=== PATIENT | female | born 1945 | race Caucasian/White ===

== ENCOUNTER 2021-01-08 08:06 | Outpatient (REF) | payer MEDICARE, SELFPAY ==
[2021-01-08 08:28] LABS: MANUAL DIFF FLAG NO
[2021-01-08 08:35] LABS: Basophils Absolute Auto 0.1 X10*3/uL (0.0-0.2); Basophils Percent Auto 1.8 % (0-2); Eosinophils Absolute Auto 0.2 X10*3/uL (0.0-0.4); Eosinophils Percent Auto 3.8 % (0-4); Hematocrit 38.6 % (37-47); Hemoglobin 12.2 g/dl (12.0-16.0); Imm Gran Abs Auto 0.03 X10*3/uL (0.00-0.03); Imm Gran Pct Auto 0.6 % (0.0-0.4); Lymphocytes Absolute Auto 1.6 X10*3/uL (1.2-4.9); Lymphocytes Percent Auto 31.7 % (20-40); Mean Corpuscular HGB Conc 31.6 g/dl (31.0-35.0); Mean Corpuscular Hemoglobin 29.5 pg (27.0-33.0); Mean Corpuscular Volume 93.2 fL (80-98); Mean Platelet Volume 8.8 fL (9.4-12.3); Monocytes Absolute Auto 0.4 X10*3/uL (0.1-1.2); Monocytes Percent Auto 7.1 % (2-11); Neutrophils Absolute Auto 2.7 X10*3/uL (2.0-8.3); Platelet Count 341 X10*3/uL (160-400); Red Blood Count 4.14 X10*6/uL (4.20-5.50); Red Cell Distribution Width 13.3 % (11.0-16.0)
[2021-01-08 08:45] LABS: Estimated Average Glucose 123 mg/dL; Hemoglobin A1c % 5.9 %
[2021-01-08 09:13] LABS: Alanine Aminotransferase 16 U/L (0-31); Albumin Level 4.3 g/dL (3.5-5.0); Alkaline Phosphatase 101 U/L (39-117); Anion Gap 12 (12-20); Aspartate Amino Transferase 24 U/L (5-31); Bilirubin Total 0.3 mg/dL (0.0-1.0); Blood Urea Nitrogen 14 mg/dL (9-16); Calcium 8.9 mg/dL (8.4-10.2); Carbon Dioxide 22 mmol/L (22-29); Chloride 110 mmol/L (96-108); Cholesterol 176 mg/dL; Estimated Glomerular Filt Rate > 60; Glucose Random 116 mg/dL (60-115); HDL Cholesterol 50 mg/dL; LDL Cholesterol Calculated 106 mg/dl; Potassium 4.3 mmol/L (3.3-5.1); Sodium 140 mmol/L (135-145); Total Protein 6.9 g/dL (6.5-8.0); Triglycerides 103 mg/dL
[2021-01-08 09:23] LABS: Thyroid Stimulating Hormone 3.37 uIU/mL (0.32-4.0)
[2021-01-08 11:34] LABS: Vitamin B12 > 2000 pg/mL (200-900)
== END 2021-01-08 08:07 | disposition home or self-care (01) ==
LOC: HO.LAB 08:06
PROVIDERS: PCP Internal Medicine; Visit Provider Internal Medicine
DX: E78.00 Pure hypercholesterolemia, unspecified (principal); R73.02 Impaired glucose tolerance (oral)
CPT/HCPCS: 36415; 80053; 80061; 82306; 82607; 82746; 83036; 84443; 85025

== ENCOUNTER 2021-04-23 14:01 | Outpatient (REF) | payer MEDICARE, SELFPAY ==
--- NOTE | ~2021-04-23 | MM_ITS ---
EXAMINATION: MM SCREENING DIGITAL BREAST TOMOSYNTHESIS, LEFT CLINICAL INFORMATION: Screening. Asymptomatic. Remote right mastectomy, 1990. Due for yearly. COMPARISON: Mammography: 03/10/2020, 03/05/2019, 02/20/2018 TECHNIQUE: Digital breast tomosynthesis is performed in both the craniocaudal and mediolateral oblique views along with computer-aided detection (CAD). Synthesized 2D images are generated from the tomosynthesis. Additional left MLO view is provided. FINDINGS: The breasts are heterogeneously dense, which may obscure small masses (ACR BI-RADS breast composition Category c). Breast tissue composition borders on average fibroglandular. No developing density. There are no significant masses, abnormal calcifications, or other abnormalities. There is a dermal lesion again seen overlying the upper outer quadrant. MM/MM tomosynthesis screening LT IMPRESSION: No mammographic evidence of malignancy. ASSESSMENT: BI-RADS 2: Benign RECOMMENDATION: Routine annual mammography screening. This patient's information was entered into a reminder system with a target due date for their next mammogram.
== END 2021-04-23 14:02 | disposition home or self-care (01) ==
LOC: HO.MAMMO 14:01
PROVIDERS: PCP Internal Medicine; Visit Provider Internal Medicine
DX: Z12.31 Encounter for screening mammogram for malignant neoplasm of breast (principal)
CPT/HCPCS: 77063; 77067

== ENCOUNTER 2021-06-20 07:59 | Outpatient (REF) | payer MEDICARE, SELFPAY ==
[2021-06-20 09:04] LABS: Alanine Aminotransferase 16 U/L (0-31); Albumin Level 4.4 g/dL (3.5-5.0); Alkaline Phosphatase 84 U/L (39-117); Anion Gap 11 (12-20); Aspartate Amino Transferase 24 U/L (5-31); Bilirubin Total 0.8 mg/dL (0.0-1.0); Blood Urea Nitrogen 11 mg/dL (9-16); Calcium 9.8 mg/dL (8.4-10.2); Carbon Dioxide 25 mmol/L (22-29); Chloride 109 mmol/L (96-108); Cholesterol 185 mg/dL; Estimated Glomerular Filt Rate > 60; Glucose Fasting 122 mg/dL (60-99); HDL Cholesterol 46 mg/dL; LDL Cholesterol Calculated 103 mg/dl; Potassium 4.5 mmol/L (3.3-5.1); Sodium 140 mmol/L (135-145); Total Protein 7.2 g/dL (6.5-8.0); Triglycerides 183 mg/dL
== END 2021-06-20 08:00 | disposition home or self-care (01) ==
LOC: HO.LAB 07:59
PROVIDERS: Nurse Practitioner Acute Care; PCP Internal Medicine; Visit Provider Internal Medicine
DX: E78.00 Pure hypercholesterolemia, unspecified (principal)
CPT/HCPCS: 36415; 80053; 80061

== ENCOUNTER 2021-06-26 14:30 | Outpatient (REF) | payer MEDICARE, SELFPAY ==
--- NOTE | ~2021-06-26 | MM_ITS ---
EXAMINATION: BONE DENSITOMETRY CLINICAL INDICATION: Pure hypercholesterolemia, unspecified. COMPARISON: Previous BD dated 08/21/2017 and baseline BD dated 08/09/2008. TECHNIQUE: Using a [employer] DXA System (software version: 13.1) manufactured by [employer], dual-energy x-ray absorptiometry was performed of the lumbar spine and left hip. The images are of good technical quality. Summary results are attached. FINDINGS: AP SPINE L1-L4: Current: BMD 0.952 g/cm2, Z-score -0.3, T-score -1.9, osteopenia, 3.5% decrease from previous, 0.2% increase from baseline (<5% change is not significant). Prior: BMD 0.987 g/cm2. Baseline: BMD 0.950 g/cm2. LEFT FEMUR, NECK: Current: BMD 0.721 g/cm2, Z-score -0.5, T-score -2.3, osteopenia. Prior: BMD 0.735 g/cm2. Baseline: BMD 0.776 g/cm2. LEFT FEMUR, TOTAL: Current: BMD 0.779 g/cm2, Z-score -0.3, T-score -1.8, osteopenia, 3.8% decrease from previous, 2.5% decrease from baseline (<5% change is not significant). Prior: BMD 0.810 g/cm2. Baseline: BMD 0.799 g/cm2. IDENTIFIED RISK FACTORS: Early menopause, secondary osteoporosis, hysterectomy, bilateral oophorectomy. HISTORY OF FRACTURE: None listed. MEDICATIONS: None listed. MM/XR DEXA axial skeleton IMPRESSION: 1. DIAGNOSIS: Osteopenia based on the lowest T-score value of -2.3 in the femoral neck applying World Health Organization criteria. 2. 10-YEAR FRACTURE RISK PREDICTION, FRAX: Major osteoporotic fracture (clinical spine, forearm, hip or shoulder) 14.8%. Hip fracture 4.0%. 3. Treatment Recommendations: NOF guidelines recommend consideration for treatment in postmenopausal women and men age 50 and older presenting with the following: -A hip or vertebral (clinical or morphometric) fracture. -T-score less than or equal to -2.5 at the femoral neck or spine after appropriate evaluation to exclude secondary causes. -Low bone mass at the hip or spine and a 10-year fracture probability by FRAX of greater than or equal to 3% for hip fracture or greater than or equal to 20% for major osteoporotic fracture based on the [place] adapted WHO algorithm. 4. Other Recommendations: All treatment decisions require clinical judgment and consideration of individual patient factors, including patient preferences, comorbidities, previous drug use, risk factors not captured in the FRAX model (e.g. frailty, falls, vitamin D deficiency, increased bone turnover, interval significant decline in bone density) and possible under or overestimation of fracture risk by FRAX. Additional medical evaluation for secondary cause of low bone mineral density may be appropriate. FUTURE SCAN RECOMMENDATION: People with diagnosed cases of osteoporosis or at high risk for fracture should have regular bone mineral density tests. For patients eligible for Medicare, routine testing is allowed once every 2 years. The testing frequency can be increased to one year for patients who have rapidly progressing disease, those who are receiving or discontinuing medical therapy to restore bone mass, or have additional risk factors.
== END 2021-06-26 14:31 | disposition home or self-care (01) ==
LOC: HO.MAMMO 14:30
PROVIDERS: PCP Internal Medicine; Visit Provider Nurse Practitioner Acute Care
DX: Z13.820 Encounter for screening for osteoporosis (principal); E78.00 Pure hypercholesterolemia, unspecified; Z78.0 Asymptomatic menopausal state; Z90.710 Acquired absence of both cervix and uterus; Z90.722 Acquired absence of ovaries, bilateral
CPT/HCPCS: 77080

== ENCOUNTER → 2021-09-20 13:02 | Outpatient (BNVA) | payer MEDICARE, SELFPAY | PROVIDERS: PCP Internal Medicine; Visit Provider Dietitian, Registered | DX: R73.02 Impaired glucose tolerance (oral) (principal); Z71.3 Dietary counseling and surveillance | CPT/HCPCS: 97802 ==

== ENCOUNTER 2021-10-27 07:49 | Outpatient (REF) | payer MEDICARE, SELFPAY ==
[2021-10-27 09:34] LABS: Alanine Aminotransferase 16 U/L (0-31); Albumin Level 4.4 g/dL (3.5-5.0); Alkaline Phosphatase 74 U/L (39-117); Anion Gap 14 (12-20); Aspartate Amino Transferase 26 U/L (5-31); Bilirubin Total 0.5 mg/dL (0.0-1.0); Blood Urea Nitrogen 18 mg/dL (9-16); Calcium 9.9 mg/dL (8.4-10.2); Carbon Dioxide 24 mmol/L (22-29); Chloride 109 mmol/L (96-108); Estimated Glomerular Filt Rate 58; Glucose Random 107 mg/dL (60-115); Potassium 4.8 mmol/L (3.3-5.1); Sodium 142 mmol/L (135-145)
[2021-10-27 09:38] LABS: Estimated Average Glucose 120 mg/dL; Hemoglobin A1c % 5.8 %
== END 2021-10-27 07:50 | disposition home or self-care (01) ==
LOC: HO.LAB 07:49
PROVIDERS: PCP Internal Medicine; Visit Provider Internal Medicine
DX: R73.02 Impaired glucose tolerance (oral) (principal)
CPT/HCPCS: 36415; 80053; 83036

== ENCOUNTER → 2021-11-07 13:38 | Outpatient (BNVA) | payer MEDICARE, SELFPAY | PROVIDERS: PCP Internal Medicine; Visit Provider Dietitian, Registered | DX: R73.02 Impaired glucose tolerance (oral) (principal) | CPT/HCPCS: 97803 ==

== ENCOUNTER 2022-04-24 14:26 | Outpatient (REF) | payer MEDICARE, OTHER, SELFPAY ==
--- NOTE | ~2022-04-24 | MM_ITS ---
EXAMINATION: MM SCREENING DIGITAL BREAST TOMOSYNTHESIS, LEFT CLINICAL INFORMATION: Due for yearly. Remote right mastectomy, 1990. COMPARISON: Mammography: 04/23/2021, 03/10/2020, 03/05/2019, 02/20/2018, 02/18/2017 TECHNIQUE: Digital breast tomosynthesis is performed in both the craniocaudal and mediolateral oblique views along with computer-aided detection (CAD). Synthesized 2D images are generated from the tomosynthesis. FINDINGS: The breasts are heterogeneously dense, which may obscure small masses (ACR BI-RADS breast composition Category c). There are scattered shifting fibroglandular parenchymal densities related to variation in positioning. No developing density or architectural abnormality. Large dermal lesion again seen overlying the anterior upper outer breast. The axilla are unremarkable. No significant changes. MM/MM tomosynthesis screening LT IMPRESSION: No mammographic evidence of malignancy. ASSESSMENT: BI-RADS 2: Benign RECOMMENDATION: Routine annual mammography screening. This patient's information was entered into a reminder system with a target due date for their next mammogram.
== END 2022-04-24 14:27 | disposition home or self-care (01) ==
LOC: HO.MAMMO 14:26
PROVIDERS: PCP Internal Medicine; Visit Provider Internal Medicine
DX: Z12.31 Encounter for screening mammogram for malignant neoplasm of breast (principal)
CPT/HCPCS: 77063; 77067

== ENCOUNTER → 2022-05-08 13:43 | Outpatient (BNVA) | payer MEDICARE, OTHER, SELFPAY | PROVIDERS: PCP Internal Medicine; Visit Provider Dietitian, Registered | DX: R73.02 Impaired glucose tolerance (oral) (principal) | CPT/HCPCS: 97803 ==

== ENCOUNTER 2022-08-07 07:54 | Outpatient (REF) | payer MEDICARE, OTHER, SELFPAY ==
[2022-08-07 08:05] LABS: MANUAL DIFF FLAG NO
[2022-08-07 08:49] LABS: Basophils Absolute Auto 0.1 X10*3/uL (0.0-0.2); Basophils Percent Auto 1.6 % (0-2); Eosinophils Absolute Auto 0.2 X10*3/uL (0.0-0.4); Eosinophils Percent Auto 3.3 % (0-4); Hematocrit 38.8 % (37.0-47.0); Hemoglobin 12.5 g/dl (12.0-16.0); Imm Gran Abs Auto 0.03 X10*3/uL (0.00-0.03); Imm Gran Pct Auto 0.6 % (0.0-0.4); Lymphocytes Absolute Auto 1.8 X10*3/uL (1.2-4.9); Mean Corpuscular HGB Conc 32.2 g/dl (31.0-35.0); Mean Corpuscular Hemoglobin 29.6 pg (27.0-33.0); Mean Corpuscular Volume 91.7 fL (80.0-98.0); Mean Platelet Volume 8.7 fL (9.4-12.3); Monocytes Absolute Auto 0.5 X10*3/uL (0.1-1.2); Monocytes Percent Auto 10.1 % (2-11); Neutrophils Absolute Auto 2.6 x10*3/uL (2.0-8.3); Neutrophils Percent Auto 50.4 % (45-73); Platelet Count 368 X10*3/uL (160-400); Red Blood Count 4.23 X10*6/uL (4.20-5.50); Red Cell Distribution Width 14.6 % (11.0-16.0); White Blood Count 5.1 X10*3/uL (4.8-10.8)
[2022-08-07 09:19] LABS: Estimated Average Glucose 117 mg/dL; Hemoglobin A1c % 5.7 %
[2022-08-07 09:30] LABS: Alanine Aminotransferase 20 U/L (0-31); Albumin Level 4.6 g/dL (3.5-5.0); Alkaline Phosphatase 78 U/L (39-117); Anion Gap 14 (12-20); Aspartate Amino Transferase 25 U/L (5-31); Bilirubin Total 0.5 mg/dL (0.0-1.0); Blood Urea Nitrogen 14 mg/dL (9-16); Calcium 9.5 mg/dL (8.4-10.2); Carbon Dioxide 23 mmol/L (22-29); Chloride 111 mmol/L (96-108); Cholesterol 203 mg/dL; Estimated Glomerular Filt Rate > 60; Glucose Random 122 mg/dL (60-115); HDL Cholesterol 61 mg/dL; LDL Cholesterol Calculated 123 mg/dl; Potassium 4.4 mmol/L (3.3-5.1); Sodium 144 mmol/L (135-145); Total Protein 6.9 g/dL (6.5-8.0); Triglycerides 98 mg/dL
[2022-08-07 09:48] LABS: Folate 17.1 ng/mL (> or = 4.0); Free T4 (Free Thyroxine) 0.95 ng/dL (0.71-1.85); Thyroid Stimulating Hormone 3.11 uIU/mL (0.32-4.0); Vitamin B12 1195 pg/mL (200-900); Vitamin D 25-OH Total 39.2 ng/mL (>30)
== END 2022-08-07 07:55 | disposition home or self-care (01) ==
LOC: HO.LAB 07:54
PROVIDERS: PCP Internal Medicine; Visit Provider Internal Medicine
DX: E53.8 Deficiency of other specified B group vitamins (principal); R73.02 Impaired glucose tolerance (oral); E78.00 Pure hypercholesterolemia, unspecified
CPT/HCPCS: 36415; 80053; 80061; 82306; 82607; 82746; 83036; 84439; 84443; 85025

== ENCOUNTER → 2022-11-05 10:52 | Outpatient (BNVA) | payer MEDICARE, OTHER, SELFPAY | PROVIDERS: PCP Internal Medicine; Visit Provider Dietitian, Registered | DX: R73.02 Impaired glucose tolerance (oral) (principal) | CPT/HCPCS: 97803 ==

== ENCOUNTER 2023-01-27 12:48 | Outpatient (AMB) | payer MEDICARE, OTHER, SELFPAY ==
--- NOTE | 2023-01-27 13:01 | AM.OFFVISNUR ---
Intake Intake Visit Reasons: b-12 Allergies surgical tape Allergy (Mild, Uncoded 08/12/22 10:45) Rash Office Meds cyanocobalamin (vitamin B-12) Performing Provider: Martita Raya MD Administered by: Marybel Titus RN on 01/27/23 13:07 Dose Route Admin Location Lot Number Expiration Date NDC Charging Crane Operator 1,000 mcg IM left deltoid [id number] 10/21/23 95533-954-28 [employer] Coding Diagnoses Assessment & Plan Assessment & Plan Orders: Orders AMB Vitamin B12 Injection Patient Supplied Today E53.8 - Deficiency of other specified B group vitamins
== END 2023-01-27 13:09 | disposition home or self-care (01) ==
PROVIDERS: PCP Internal Medicine; Visit Provider Internal Medicine
DX: E53.8 Deficiency of other specified B group vitamins (principal)
CPT/HCPCS: 96372; J3420

== ENCOUNTER 2023-02-25 09:38 | Outpatient (AMB) | payer MEDICARE, OTHER, SELFPAY ==
--- NOTE | 2023-02-25 10:00 | AM.OFFVISNUR ---
Intake Intake Visit Reasons: B-12 Allergies surgical tape Allergy (Mild, Uncoded 08/12/22 10:45) Rash Office Meds cyanocobalamin (vitamin B-12) Performing Provider: Martita Raya MD Administered by: Marybel Titus RN on 02/25/23 10:06 Dose Route Admin Location Lot Number Expiration Date NDC Station Repairer 1,000 mcg IM left deltoid [id number] 10/21/23 42589-280-00 [employer] (P) Coding Diagnoses Assessment & Plan Assessment & Plan Orders: Orders AMB Vitamin B12 Injection Patient Supplied Today E53.8 - Deficiency of other specified B group vitamins Medications: Refilled cyanocobalamin (vitamin B-12) 1,000 mcg IM Q4W 12 kits 3RF 90 days E53.8 - Deficiency of other specified B group vitamins
== END 2023-02-25 10:07 | disposition home or self-care (01) ==
PROVIDERS: PCP Internal Medicine; Visit Provider Internal Medicine
DX: E53.8 Deficiency of other specified B group vitamins (principal)
CPT/HCPCS: 96372; J3420

== ENCOUNTER 2023-03-25 14:04 | Outpatient (AMB) | payer MEDICARE, OTHER, SELFPAY ==
--- NOTE | 2023-03-25 14:09 | MHC.PC.OV ---
Vital Signs 03/25/23 14:13 Height 5 ft 6 in Weight 149 lb 2 oz BMI 24.1 BP 122/82 Blood Pressure Location Lt brachial Position Sitting Pulse 95 Pulse Source Pulse Oximeter Pulse Oximetry (%) 96 Oxygen Delivery Method Room Air Intake Visit Reasons: swv / b-12 shot Intake Note: Patient is here to follow up on B12 deficiency, Impaired glucose tolerance and Hypercholesterolemia. Beater Room Helper Required: No Job Service Specialist: Not Required per policy Accompanied by: Self / Same As Patient Allergies surgical tape Allergy (Mild, Uncoded 03/25/23 14:26) Rash Medication List - Last Reconciled 03/25/23 by MARC Campuzano cyanocobalamin (vitamin B-12) 1,000 mcg IM Q4W 90 days cyclobenzaprine 5 mg PO TID 90 days simvastatin 40 mg PO DAILY sumatriptan succinate 25 mg PO .QD PRN 90 days Tobacco use date assessed: 03/25/23 Fall risk assessment: No Falls in past year Last assessed Fall Risk: 03/25/23 Dental Screening Dental Screen Date: 03/25/23 Did you have a dental visit in the last 12 months?: Yes Did you have a dental problem in the last 6 months where you did not have access to dental care?: No Was dental information given to patient?: Patient has dentist HPI HPI Comments History of Present Illness Details 77-year-old female past medical history significant for breast cancer, impaired glucose tolerance, hypercholesteremia, osteopenia, migraines and vitamin B12 deficiency. Patient last seen in July patient presents today for follow-up visit and for vitamin B12 injection and flu shot given in office today. Patient denies any acute concerns. Patient recommended to get fasting blood work completed prior to annual wellness visit scheduled in May. [facility] Medical History (Updated 04/22/22 @ 16:40 by Martita Raya MD) Duodenal ulcer Hypercholesterolemia Stress incontinence Impaired glucose tolerance Migraine History of breast cancer Pernicious anemia B12 deficiency Surgical History History of dental surgery History of orthopedic surgery History of knee replacement procedure of left knee S/P left knee arthroscopy History of appendectomy History of tonsillectomy History of total abdominal hysterectomy and bilateral salpingo-oophorectomy H/O right mastectomy Family History Father Prostate cancer Lung cancer Mother CVD (cardiovascular disease) Renal artery aneurysm Social History Housing: House Alcohol intake: current Alcohol intake frequency: a few times a month Patient Tobacco Use Status: Never used Tobacco e-Cigarette/Vaping Use: Never Used Second Hand Smoke Exposure: No service: No Current occupational status: retired Cognitive needs: No Hearing needs: No Vision needs: Yes Questionnaire Thrive Questionnaire Date Thrive assessed: 08/12/22 CLIFF-7 AMB Questionnaire CLIFF-7 Date CLIFF - 7 assessed: 08/12/22 Source: Developed by Drs. Ronal Wheeler, Slime Oswald, Gustavo Horner and colleagues, with an educational ernesto from [employer]. Review of Systems Const Denies chills, Denies fatigue, Denies fever(s) and Denies poor appetite Eyes Denies no additional complaints ENT Reports Normal hearing present Card Denies chest pain, Denies syncope, Denies rapid heart rate and Denies dyspnea Resp Denies cough and Denies dyspnea GI Denies change in stool character, Denies constipation, Denies diarrhea, Denies nausea and Denies vomiting Denies urinary frequency, Denies dysuria and Denies urinary urgency Neuro Reports Normal hearing present, Denies confusion and Denies syncope Psych Denies confusion Endo Denies fatigue Physical exam (Primary Care) Vital Signs: Last Vital Signs Pulse 95 03/25/23 14:13 BP 122/82 03/25/23 14:13 Pulse Ox 96 03/25/23 14:13 Oxygen Delivery Method Room Air 03/25/23 14:13 BMI result Body Mass Index 24.1 Tobacco/Smoking Status: Tobacco use Status Tobacco use date assessed 03/25/23 03/25/23 14:22 Patient Tobacco Use Status Never used Tobacco 03/25/23 14:10 e-Cigarette/Vaping Use Never Used 03/25/23 14:10 Thrive Assessment: Date of Thrive Assessment Date Thrive assessed 08/12/22 03/25/23 14:10 Const General: No confusion Orientation/consciousness: No confusion HENMT Head: Yes normocephalic and Yes atraumatic Eyes Conjunctivae: conjunctivae normal Chest Chest palpation & inspection: normal inspection of the chest Resp Effort & Inspection: normal respiratory effort Auscultation: clear to auscultation bilaterally, no crackles, no rhonchi and no wheezes Cardio Rate: regular rate Rhythm: regular rhythm Heart sounds: S1 normal heart sound present and S2 normal heart sound present GI Inspection: Yes normal to inspection Neuro General: No confusion Cranial nerves: Yes Normal hearing present Extrem General: No edema Office Procedures Flu Questionnaire Does the patient have a severe egg allergy?: No Does the patient have severe life threatening allergies?: No Does the patient have a fever or illness today?: No Has the patient ever had Guillain-[place] Syndrome?: No Has the patient ever had any past reaction to a flu shot?: No Office Meds cyanocobalamin (vitamin B-12) 1,000 mcg/mL injection solution Performing Provider: MARC Campuzano Performing Location[place] [facility] Administered by: Marybel Titus RN on 03/25/23 14:32 Dose Route Admin Location Dispensed Lot Number Expiration Date [facility] [employer] Research [employer] 1,000 mcg IM LEFT DELTOID 1 mL [id number] 10/20/24 31179-282-03 [employer] Results AMB Hemoglobin A1c AMB Hemoglobin A1c 5.8 % Last Edit by MIRIAM Diaz on 03/25/23 14:27 Immunizations flu vacc [id number] 6mos up(PF) 60 mcg(15 mcgx4)/0.5 mL IM syringe Performing Provider: MACR Campuzano Performing [facility] Administered by: Marybel Titus RN on 03/25/23 14:31 Dose Route Admin Location Dispensed Lot Number Expiration Date [facility] [employer] Research [employer] 0.5 mL IM Left Deltoid 0.5 mL [id number] 12/21/23 91659-762-99 [employer] VIS Given Date VIS Provided VIS Publication Date 03/25/23 Single Vaccine 21 Eligibility Eligibility Date Funding Source Not [facility] Eligible 03/25/23 Private Results Reviewed Results Reviewed: Laboratory Last Values Hgb A1c (Clinic) 5.8 % (4.0-6.0) 03/25/23 14:12 Assessment and Plan Assessment & Plan (1) Impaired glucose tolerance: Code(s): R73.02 - Impaired glucose tolerance (oral) Plan: Hemoglobin A1c:5.8% Patient educated to decrease the amount of carbohydrate intake such as pasta, bread, rice and potatoes are all sugar in addition to the sweet stuff. Remember that fruits are good but they also have sugar. (2) Hypercholesterolemia: Code(s): E78.00 - Pure hypercholesterolemia, unspecified Plan: Continue on simvastatin 40 mg daily. Avoid fried foods, chicken skin, eggs, butter,margarine, pastries and?? red meat. (3) B12 deficiency: Code(s): E53.8 - Deficiency of other specified B group vitamins Plan: Vitamin B12 given office today. Follow-up in 1 month for repeat injection. (4) Migraine: Code(s): G43.909 - Migraine, unspecified, not intractable, without status migrainosus Plan: Continue on sumatriptan as needed for migraine headache. Plan Keep schedule annual wellness visit in May for follow-up sooner if needed. Orders: Orders Influenza [id number] Immunization Today Z23 - Encounter for immunization AMB Vitamin B12 Injection Patient Supplied Today D51.9 - Vitamin B12 deficiency anemia, unspecified Comprehensive [place]. Panel Fast Today R73.02 - Impaired glucose tolerance (oral) Lipid Panel Today E78.00 - Pure hypercholesterolemia, unspecified Vitamin B12 Today E53.8 - Deficiency of other specified B group vitamins Vitamin D 25-OH Total Today Z13.21 - Encounter for screening for nutritional disorder AMB Hemoglobin A1c Today R73.02 - Impaired glucose tolerance (oral) Complete Blood Count Auto Diff Today Z13.0 - Encounter for screening for diseases of the blood and blood-forming organs and certain disorders involving the immune mechanism TSH reflex Free T4 Today Z13.29 - Encounter for screening for other suspected endocrine disorder Coding Level of Care Code Est Pt Level 4 (61495) Diagnoses Impaired glucose tolerance R73.02 Hypercholesterolemia E78.00 B12 deficiency E53.8 Migraine G43.909
[2023-03-25 14:13] VITALS: BP 122/82; PULSE 95; O2SAT 96; BMI 24.1
== END 2023-03-25 14:38 | disposition home or self-care (01) ==
PROVIDERS: PCP Internal Medicine; Visit Provider Nurse Practitioner Family
DX: R73.02 Impaired glucose tolerance (oral) (principal); E78.00 Pure hypercholesterolemia, unspecified; E53.8 Deficiency of other specified B group vitamins; G43.909 Migraine, unspecified, not intractable, without status migrainosus; Z23 Encounter for immunization; D51.9 Vitamin B12 deficiency anemia, unspecified
CPT/HCPCS: 83036; 90471; 90686; 96372; 99214; J3420

== ENCOUNTER 2023-04-05 07:58 | Outpatient (REF) | payer MEDICARE, OTHER, SELFPAY ==
[2023-04-05 09:01] LABS: Basophils Absolute Auto 0.1 X10*3/uL (0.0-0.2); Basophils Percent Auto 1.7 % (0-2); Eosinophils Absolute Auto 0.1 X10*3/uL (0.0-0.4); Eosinophils Percent Auto 3.1 % (0-4); Hematocrit 38.4 % (37.0-47.0); Hemoglobin 12.2 g/dl (12.0-16.0); Imm Gran Abs Auto 0.02 X10*3/uL (0.00-0.03); Imm Gran Pct Auto 0.5 % (0.0-0.4); Lymphocytes Absolute Auto 1.1 X10*3/uL (1.2-4.9); Lymphocytes Percent Auto 26.5 % (20-40); MANUAL DIFF FLAG NO; Mean Corpuscular HGB Conc 31.8 g/dl (31.0-35.0); Mean Corpuscular Volume 94.3 fL (80.0-98.0); Monocytes Absolute Auto 0.4 X10*3/uL (0.1-1.2); Monocytes Percent Auto 9.6 % (2-11); Neutrophils Absolute Auto 2.4 x10*3/uL (2.0-8.3); Neutrophils Percent Auto 58.6 % (45-73); Platelet Count 344 X10*3/uL (160-400); Red Blood Count 4.07 X10*6/uL (4.20-5.50); Red Cell Distribution Width 13.2 % (11.0-16.0); White Blood Count 4.2 X10*3/uL (4.8-10.8)
[2023-04-05 09:54] LABS: Alanine Aminotransferase 16 U/L (0-31); Albumin Level 4.6 g/dL (3.5-5.0); Alkaline Phosphatase 69 U/L (39-117); Anion Gap 15 (12-20); Aspartate Amino Transferase 31 U/L (5-31); Bilirubin Total 0.6 mg/dL (0.0-1.0); Blood Urea Nitrogen 11 mg/dL (9-16); Calcium 9.9 mg/dL (8.4-10.2); Carbon Dioxide 23 mmol/L (22-29); Chloride 110 mmol/L (96-108); Cholesterol 184 mg/dL (<200); Estimated Glomerular Filt Rate > 60; Glucose Fasting 114 mg/dL (60-99); HDL Cholesterol 67 mg/dL (>40); LDL Cholesterol Calculated 85 mg/dL (<100); Potassium 4.5 mmol/L (3.3-5.1); Sodium 143 mmol/L (135-145); Total Protein 7.4 g/dL (6.5-8.0); Triglycerides 160 mg/dL (<150)
[2023-04-05 10:08] LABS: TSH reflex Free T4 2.77 uIU/mL (0.32-4.0); Vitamin D 25-OH Total 47.7 ng/mL (>30)
[2023-04-05 10:13] LABS: Vitamin B12 854 pg/mL (200-900)
== END 2023-04-05 07:59 | disposition home or self-care (01) ==
LOC: HO.LAB 07:58
PROVIDERS: PCP Internal Medicine; Visit Provider Nurse Practitioner Family
DX: Z13.21 Encounter for screening for nutritional disorder (principal); Z13.0 Encounter for screening for diseases of the blood and blood-forming organs and certain disorders involving the immune mechanism; Z13.29 Encounter for screening for other suspected endocrine disorder; R73.02 Impaired glucose tolerance (oral); E78.00 Pure hypercholesterolemia, unspecified; E53.8 Deficiency of other specified B group vitamins; M85.80 Other specified disorders of bone density and structure, unspecified site
CPT/HCPCS: 36415; 80053; 80061; 82306; 82607; 84443; 85025

== ENCOUNTER 2023-04-25 09:16 | Outpatient (AMB) | payer MEDICARE, OTHER, SELFPAY ==
--- NOTE | 2023-04-25 09:29 | AM.OFFVISNUR ---
Intake Intake Visit Reasons: b-12 Allergies surgical tape Allergy (Mild, Uncoded 03/25/23 14:26) Rash Office Meds cyanocobalamin (vitamin B-12) 1,000 mcg/mL injection solution Performing Provider: Martita Raya MD [facility] Administered by: Marybel Titus RN on 04/25/23 09:29 Dose Route Admin Location Dispensed Lot Number Expiration Date NDC Manager Billing 1,000 mcg IM left deltoid 1 mL [id number] 10/20/24 07565-479-13 [facility] Coding Assessment & Plan Assessment & Plan Orders: Orders AMB Vitamin B12 Injection Patient Supplied Today D51.9 - Vitamin B12 deficiency anemia, unspecified
== END 2023-04-25 09:31 | disposition home or self-care (01) ==
PROVIDERS: PCP Internal Medicine; Visit Provider Internal Medicine
DX: D51.9 Vitamin B12 deficiency anemia, unspecified (principal)
CPT/HCPCS: 96372; J3420

== ENCOUNTER 2023-05-06 10:36 | Outpatient (AMB) | payer MEDICARE, OTHER, SELFPAY ==
[2023-05-06 11:11] VITALS: BMI 24.6
--- NOTE | 2023-05-06 11:11 | A.OFFVIS_ITS ---
Intake VS Expanded 05/06/23 11:11 Height 5 ft 6 in Weight 152 lb 8.958 oz BMI 24.6 Intake Visit Reasons: PRE DM Allergies surgical tape Allergy (Mild, Uncoded 03/25/23 14:26) Rash HPI Nutrition Presentation Details Pt presents for MNT f/u for Pre,DM Pt reports doing well, keeping physically active, likes to bake Reports having milk : 2-3 c/day fish: once a week nuts/daily , peanut butter fruits: 2/d vegetables 3 x/wk Pt reports keeping track of steps : range [id number] Water: 24 -36 oz /day Most Recent Diabetes Results: Cholesterol 184 mg/dL (<200) 04/05/23 HDL Cholesterol 67 mg/dL (>40) 04/05/23 Triglycerides 160 mg/dL (<150) H 04/05/23 Creatinine 0.81 mg/dL (0.5-1.4) 04/05/23 Blood Urea Nitrogen 11 mg/dL (9-16) 04/05/23 Sodium 143 mmol/L (135-145) 04/05/23 Potassium 4.5 mmol/L (3.3-5.1) 04/05/23 Chloride 110 mmol/L (96-108) H 04/05/23 Carbon Dioxide 23 mmol/L (22-29) 04/05/23 Calcium 9.9 mg/dL (8.4-10.2) 04/05/23 AST 31 U/L (5-31) 04/05/23 ALT 16 U/L (0-31) 04/05/23 Total Protein 7.4 g/dL (6.5-8.0) 04/05/23 Albumin 4.6 g/dL (3.5-5.0) 04/05/23 [facility] Medical History (Updated 04/22/22 @ 16:40 by Martita Raya MD) Duodenal ulcer Hypercholesterolemia Stress incontinence Impaired glucose tolerance Migraine History of breast cancer Pernicious anemia B12 deficiency Surgical History History of dental surgery History of orthopedic surgery History of knee replacement procedure of left knee S/P left knee arthroscopy History of appendectomy History of tonsillectomy History of total abdominal hysterectomy and bilateral salpingo-oophorectomy H/O right mastectomy Family History Father Prostate cancer Lung cancer Mother CVD (cardiovascular disease) Renal artery aneurysm Social History Housing: House Alcohol intake: current Alcohol intake frequency: a few times a month Patient Tobacco Use Status: Never used Tobacco e-Cigarette/Vaping Use: Never Used Second Hand Smoke Exposure: No service: No Current occupational status: retired Cognitive needs: No Hearing needs: No Vision needs: Yes Assessment & Plan Assessment & Plan (1) Impaired glucose tolerance: Code(s): R73.02 - Impaired glucose tolerance (oral) Plan Educate Pt on [id number] nilson meal plan ? Pt's set goal (Date: 09/20/21 ): reduce carbohydrate as a snack to less than 15 and meal to 45 g at follow up (Date: 11/07/21 ): met 50% , 50% 04/2023 Used wt : 70 kg Est kcal as per MSJ: 1700 (40% carb, 30% fat/prot) Est fluid needs: 1750l/d (30 ml/kg bw) Rec fiber: increase to 8-10 g per day and gradually increase to 25 g/d as tolerated Rec Na: < 2000 mg /d Educate patient on: (R= Reviewed, V = verbalizes understanding N/R= Needs review N/A= not applicable) * Food sources of carbohydrates and serving adequate serving sizes : R V * Difference between complex carbohydrates and simple carbohydrates, role of fiber: R V * Differences between fats (MUFA/PUFA/saturated fats, trans fats) and food sources of various fats: R V * Food sources of sodium and salt and healthy modifications for heart health and kidney health: R V * Vitamins and minerals: V * How to interpret food labels: R V * Healthy Plate method concept: R V * Physical activity: benefits and precaution: R V Patient Instructions: Keep hydrated , choose low sodium broth, water, tea, milk Include 1-2 serving of iron rich foods in your diet (spinach, beef, lentil/beans) Continue working on reducing sugars (pastries/candies) Keep physically active as able Coding Level of Care Code Nutr Indiv Subseq (88621) Diagnoses Impaired glucose tolerance R73.02 Time Spent (min) 20
== END 2023-05-06 11:35 | disposition home or self-care (01) ==
PROVIDERS: PCP Internal Medicine; Visit Provider Dietitian, Registered
DX: R73.02 Impaired glucose tolerance (oral) (principal)

== ENCOUNTER → 2023-05-06 10:36 | Outpatient (BNVA) | payer MEDICARE, OTHER, SELFPAY | PROVIDERS: Visit Provider Dietitian, Registered | DX: R73.02 Impaired glucose tolerance (oral) (principal) | CPT/HCPCS: 97803 ==

== ENCOUNTER 2023-05-12 08:29 | Outpatient (REF) | payer MEDICARE, OTHER, SELFPAY ==
--- NOTE | ~2023-05-12 | MM_ITS ---
EXAMINATION: MM SCREENING DIGITAL BREAST TOMOSYNTHESIS, LEFT CLINICAL INFORMATION: Screening. Asymptomatic. The patient is status post right mastectomy. COMPARISON: Mammography: This study is compared with prior exams dating back to 2017. TECHNIQUE: Digital breast tomosynthesis is performed in both the craniocaudal and mediolateral oblique views along with computer-aided detection (CAD). Synthesized 2D images are generated from the tomosynthesis. FINDINGS: There are scattered areas of fibroglandular density (ACR BI-RADS breast composition Category b). There are no significant masses, abnormal calcifications, or other abnormalities. MM/MM tomosynthesis screening LT IMPRESSION: No mammographic evidence of malignancy. ASSESSMENT: BI-RADS BI-RADS 1 - Negative RECOMMENDATION: Routine annual mammography screening. 1 year F/U This examination should not preclude the clinical evaluation of a suspicious palpable abnormality. This patient's information was entered into a reminder system with a target due date for their next mammogram.
== END 2023-05-12 08:30 | disposition home or self-care (01) ==
LOC: HO.MAMMO 08:29
PROVIDERS: PCP Internal Medicine; Visit Provider Internal Medicine
DX: Z12.31 Encounter for screening mammogram for malignant neoplasm of breast (principal)
CPT/HCPCS: 77063; 77067

== ENCOUNTER → 2023-05-12 08:45 | Outpatient (BNV) | payer MEDICARE, OTHER, SELFPAY | PROVIDERS: PCP Internal Medicine; Visit Provider Radiology Diagnostic Radiology | DX: Z12.31 Encounter for screening mammogram for malignant neoplasm of breast (principal) | CPT/HCPCS: 77063; 77067 ==

== ENCOUNTER 2023-05-23 09:16 | Outpatient (AMB) | payer MEDICARE, OTHER, SELFPAY ==
--- NOTE | 2023-05-23 09:21 | AM.OFFVISNUR ---
Intake Intake Visit Reasons: B12 Shot Allergies surgical tape Allergy (Mild, Uncoded 03/25/23 14:26) Rash Office Meds cyanocobalamin (vitamin B-12) 1,000 mcg/mL injection solution Performing Provider: Martita Raya MD [facility] Administered by: Marybel Titus RN on 05/23/23 09:28 Dose Route Admin Location Dispensed Lot Number Expiration Date NDC Balance Wheel Hand Filer 1,000 mcg IM left deltoid 1 mL [id number] 10/20/24 48817-954-93 [facility] Coding Assessment & Plan Assessment & Plan Orders: Orders AMB Vitamin B12 Injection Patient Supplied Today D51.9 - Vitamin B12 deficiency anemia, unspecified
== END 2023-05-23 09:28 | disposition home or self-care (01) ==
PROVIDERS: PCP Internal Medicine; Visit Provider Internal Medicine
DX: D51.9 Vitamin B12 deficiency anemia, unspecified (principal)
CPT/HCPCS: 96372; J3420

== ENCOUNTER 2023-06-03 13:25 | Outpatient (AMB) | payer MEDICARE, OTHER, SELFPAY ==
--- NOTE | 2023-06-03 13:31 | A.OFFVIS_ITS ---
Intake Vital Signs 06/03/23 13:34 Height 5 ft 6 in Weight 147 lb 6 oz BMI 23.8 BP 140/80 H Blood Pressure Location Lt brachial Position Sitting Pulse 102 H Pulse Source Pulse Oximeter Pulse Oximetry (%) 96 Oxygen Delivery Method Room Air Intake Visit Reasons: JESUS [id number] Intake Note: Patient is here for an Annual Wellness Visit. 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 Mammograms up-to-date, bone density up-to-date and colonoscopy due [facility] Medical History (Updated 06/03/23 @ 18:53 by Martita Raya MD) Duodenal ulcer Hypercholesterolemia Stress incontinence Impaired glucose tolerance Migraine History of breast cancer Pernicious anemia B12 deficiency Surgical History History of dental surgery History of orthopedic surgery History of knee replacement procedure of left knee S/P left knee arthroscopy History of appendectomy History of tonsillectomy History of total abdominal hysterectomy and bilateral salpingo-oophorectomy H/O right mastectomy Family History Father Prostate cancer Lung cancer Mother CVD (cardiovascular disease) Renal artery aneurysm Social History (Updated 06/03/23 @ 14:25 by Martita Raya MD) Housing: House Alcohol intake: current Alcohol intake frequency: a few times a month Comment: holiday 1 beer Patient Tobacco Use Status: Never used Tobacco e-Cigarette/Vaping Use: Never Used Second Hand Smoke Exposure: No service: No Current occupational status: retired Cognitive needs: No Hearing needs: No Vision needs: Yes Questionnaire Medicare Wellness Checkup [age] What gender do you identify with?: female During the past 4 weeks, how much have you been bothered by emotional problems such as feeling anxious, depressed, irritable, sad or downhearted, and blue?: not at all During the past 4 weeks, has your physical & emotional health limited your social activities with family, friends, neighbors, or groups?: slightly During the past 4 weeks, how much bodily pain have you generally had?: mild pain During the past 4 weeks, was someone available to help you if you needed & wanted help?: yes, some During the past 4 weeks, what was the hardest physical activity you could do for at least 2 minutes?: heavy Can you get to places out of walking distance without help? (For eg., can you travel alone on buses, taxis or drive your car?): Yes Can you go shopping for groceries or clothes without someone's help?: Yes Can you prepare your own meals?: Yes Can you do your housework without help?: Yes Because of any health problems, do you need the help of another person with your personal care needs such as eating, bathing, dressing or getting around the house?: No Can you handle your own money without help?: Yes During the past 4 weeks, how would you rate your health in general?: good During the past 4 weeks how have things been going for you?: pretty well Are you having difficulties driving your car?: no Do you always fasten your seat belt when you are in a car?: yes, usually During past 4 weeks, have you been bothered by the following: never: Falling or dizzy when standing up, Trouble eating well?, Teeth or denture problems?, Problems using the telephone? and Tiredness or fatigue? Have you fallen 2 or more times in the past year?: No Are you afraid of falling?: No Are you a smoker?: no During the past 4 weeks, how many drinks of wine, beer, or other alcoholic beverages did you have?: 1 drink or less per week Do you exercise for about 20 minutes 3 or more times a week?: yes, all the time Have you been given information to help with the following?: no: Hazards in your house that might hurt you? and no: Keeping track of your medications? How often do you have trouble taking medicines the way you have been told to take them?: I always take medicine as prescribed How confident are you that you can control & manage most of your health problems?: very confident What is your race?: White PHQ-9 Over the last 2 weeks, how often have you been bothered by any of the following problems? 1. Little interest or pleasure in doing things: not at all 2. Feeling down, depressed, or hopeless: not at all 3. Trouble falling or staying asleep, or sleeping too much: not at all 4. Feeling tired or having little energy: not at all 5. Poor appetite or overeating: not at all 6. Feeling bad about yourself - or that you are a failure or have let yourself or your family down: not at all 7. Trouble concentrating on things, such as reading the newspaper or watching television: not at all 8. Moving or speaking so slowly that other people could have noticed. Or the opposite - being so fidgety or restless that you have been moving around a lot more than usual: not at all 9. Thoughts that you would be better off or of hurting yourself in some way: not at all Total score: 0 Depression Screening Interpretation: Negative Depression Screening Done: Yes Source: Developed by Drs. Ronal Wheeler, Slime Oswald, Gustavo Horner and colleagues, with an educational ernesto from [employer]. Thrive Questionnaire Date Thrive assessed: 08/12/22 CLIFF-7 AMB Questionnaire CLIFF-7 Date CLIFF - 7 assessed: 08/12/22 Source: Developed by Slime Coppola Kurt Kroenke and colleagues, with an educational ernesto from [employer]. Review of Systems Const Denies poor appetite and Denies weakness Eyes Denies no additional complaints ENT Reports Normal hearing present, Denies dizziness, Denies nasal congestion, Denies tinnitus and Denies sore throat Card Denies chest pain, Denies syncope, Denies rapid heart rate and Denies dyspnea Resp Denies cough and Denies dyspnea GI Denies change in stool character, Reports constipation, Denies diarrhea, Denies nausea and Denies vomiting Denies urinary frequency, Denies difficulty voiding and Denies dysuria Neuro Reports Normal hearing present, Denies confusion, Denies dizziness, Denies syncope and Denies weakness Psych Denies confusion Physical Exam Vital Signs: Last Vital Signs Pulse 102 H 06/03/23 13:34 BP 140/80 H 06/03/23 13:34 Pulse Ox 96 06/03/23 13:34 Oxygen Delivery Method Room Air 06/03/23 13:34 BMI result Body Mass Index 23.8 Const General: No confusion Orientation/consciousness: No confusion HEENT Head: Yes normocephalic Ears: external ears normal and TM's normal bilaterally Face and sinus: Yes normal facial exam Mouth: moist mucous membranes Throat: Yes tonsils normal Eyes Conjunctivae: conjunctivae normal Pupils: Equal, round and reactive pupils present and Pupil accommodation reflex normal Direct Ophthalmoscopy: normal light reflex Neck Neck: No lymphadenopathy Thyroid: Thyroid normal Chest Chest palpation & inspection: normal inspection of the chest Resp Effort & Inspection: normal respiratory effort and no audible wheezes Auscultation: clear to auscultation bilaterally, no crackles, no wheezes and lung sounds not diminished Cardio Rate: regular rate Rhythm: regular rhythm Peripheral pulses: radial pulses present and dorsalis pedis present GI Palpation (GI): no masses Auscultation: normal bowel sounds and normoactive bowel sounds Rectal Exam - Female: deferred Skin General skin exam: no rashes or lesions noted Rashes: no rashes Neuro General: No confusion Cranial nerves: Yes Equal, round and reactive pupils present and Yes Normal hearing present Cognition (Neuro): normal cognition Gait exam (Neuro): Normal gait present Motor exam (neuro): 5/5 motor strength present throughout Deep tendon reflexes (DTR's): Right brachioradialis reflex intensity grade: 2+, Left brachioradialis reflex intensity grade: 2+, Right patellar reflex intensity grade: 2+ and Left patellar reflex intensity grade: 2+ Extrem General: No edema Assessment & Plan Assessment & Plan (1) Medicare annual wellness visit, subsequent: Code(s): Z00.00 - Encounter for general adult medical examination without abnormal findings Plan: Continue present medications (2) Impaired glucose tolerance: Code(s): R73.02 - Impaired glucose tolerance (oral) Plan: Decrease the amount of carbohydrate intake, pasta, bread, rice and potatoes are all sugar and that is aside from all the sweet stuff, remember that fruits are good but they are Sweet also. (3) History of breast cancer: Comment: Right 1990 Dr. Reardon right radical mastectomy no chemo no radiation tamoxifen 5 years Code(s): Z85.3 - Personal history of malignant neoplasm of breast Plan: Mammograms up-to-date (4) Hypercholesterolemia: Code(s): E78.00 - Pure hypercholesterolemia, unspecified Plan: Avoid fried foods, chicken skin, eggs, butter margarine, pastries and meat. Be it pork or beef they have a lot of cholesterol LDL goal of less than 130 and triglyceride of less than 150 patient on simvastatin 40 mg once a day (5) Osteopenia: Comment: 06/2021 Code(s): M85.80 - Other specified disorders of bone density and structure, unspecified site Qualifiers: Osteopenia location: unspecified Qualified Code(s): M85.80 - Other specified disorders of bone density and structure, unspecified site Plan: Bone density is up-to-date (6) Colon cancer screening: Code(s): Z12.11 - Encounter for screening for malignant neoplasm of colon Plan: Discussed about colon cancer screening (7) Ulnar neuropathy at elbow of right upper extremity: Code(s): G56.21 - Lesion of ulnar nerve, right upper limb Plan: Will continue to follow-up for now, declined any workup Orders: Referrals Gastroenterology Referral Z12.11 - Encounter for screening for malignant neoplasm of colon Quality Reporting (2019) Depression/Bipolar (159/160/161/177) PHQ-9: Total score: 0 Coding Level of Care Code Medicare Subsequent (G0439) Diagnoses Medicare annual wellness visit, subsequent Z00.00 Impaired glucose tolerance R73.02 History of breast cancer Z85.3 Hypercholesterolemia E78.00 Osteopenia, unspecified location M85.80 Osteopenia location: unspecified Colon cancer screening Z12.11 Ulnar neuropathy at elbow of right upper extremity G56.21
[2023-06-03 13:34] VITALS: BP 140/80; PULSE 102; O2SAT 96; BMI 23.8
== END 2023-06-03 15:03 | disposition home or self-care (01) ==
PROVIDERS: PCP Internal Medicine; Visit Provider Internal Medicine
DX: Z00.00 Encounter for general adult medical examination without abnormal findings (principal); R73.02 Impaired glucose tolerance (oral); Z85.3 Personal history of malignant neoplasm of breast; E78.00 Pure hypercholesterolemia, unspecified; M85.80 Other specified disorders of bone density and structure, unspecified site; Z12.11 Encounter for screening for malignant neoplasm of colon; G56.21 Lesion of ulnar nerve, right upper limb
CPT/HCPCS: G0439

== ENCOUNTER 2023-06-24 08:10 | Outpatient (AMB) | payer MEDICARE, OTHER, SELFPAY ==
--- NOTE | 2023-06-24 08:29 | AM.OFFVISNUR ---
Intake Intake Visit Reasons: b-12 Allergies surgical tape Allergy (Mild, Uncoded 06/03/23 13:34) Rash Office Meds cyanocobalamin (vitamin B-12) 1,000 mcg/mL injection solution Performing Provider: Martita Raya MD [facility] Administered by: Rebeca Dodge RN on 06/24/23 08:29 Dose Route Admin Location Dispensed Lot Number Expiration Date ND Signals Analyst 1,000 mcg IM 1 mL [id number] 10/20/24 57421-186-05 [facility] Coding Assessment & Plan Assessment & Plan Orders: Orders AMB Vitamin B12 Injection Patient Supplied Today E53.8 - Deficiency of other specified B group vitamins
== END 2023-06-24 08:32 | disposition home or self-care (01) ==
PROVIDERS: PCP Internal Medicine; Visit Provider Internal Medicine
DX: E53.8 Deficiency of other specified B group vitamins (principal)
CPT/HCPCS: 96372; J3420

== ENCOUNTER 2023-07-25 08:16 | Outpatient (AMB) | payer MEDICARE, OTHER, SELFPAY ==
--- NOTE | 2023-07-25 08:36 | AM.OFFVISNUR ---
Intake Intake Visit Reasons: B12 Shot Allergies surgical tape Allergy (Mild, Uncoded 06/03/23 13:34) Rash Office Meds cyanocobalamin (vitamin B-12) 1,000 mcg/mL injection solution Performing Provider: Martita Raya MD [facility] Administered by: Rebeca Dodge RN on 07/25/23 08:36 Dose Route Admin Location Dispensed Lot Number Expiration Date NDC Music Coordinator 1,000 mcg IM left deltoid 1 mL [id number] 08/20/24 31792-166-35 [employer] Coding Assessment & Plan Assessment & Plan Orders: Orders AMB Vitamin B12 Injection Patient Supplied Today E53.8 - Deficiency of other specified B group vitamins
== END 2023-07-25 08:50 | disposition home or self-care (01) ==
PROVIDERS: PCP Internal Medicine; Visit Provider Internal Medicine
DX: E53.8 Deficiency of other specified B group vitamins (principal)
CPT/HCPCS: 96372; J3420

== ENCOUNTER 2023-08-22 08:12 | Outpatient (AMB) | payer MEDICARE, OTHER, SELFPAY ==
--- NOTE | 2023-08-22 08:23 | AM.OFFVISNUR ---
Intake Intake Visit Reasons: B12 Shot Allergies surgical tape Allergy (Mild, Uncoded 06/03/23 13:34) Rash Office Meds cyanocobalamin (vitamin B-12) 1,000 mcg/mL injection solution Performing Provider: Martita Raya MD [facility] Administered by: Rebeca Dodge RN on 08/22/23 08:23 Dose Route Admin Location Dispensed Lot Number Expiration Date NDC Envelope Sealer 1,000 mcg IM left deltoid 1 mL [id number] 08/20/24 88850-857-99 [employer] Coding Assessment & Plan Assessment & Plan Orders: Orders AMB Vitamin B12 Injection Patient Supplied Today E53.8 - Deficiency of other specified B group vitamins
== END 2023-08-22 08:25 | disposition home or self-care (01) ==
PROVIDERS: PCP Internal Medicine; Visit Provider Internal Medicine
DX: E53.8 Deficiency of other specified B group vitamins (principal)
CPT/HCPCS: 96372; J3420

== ENCOUNTER 2023-09-22 08:04 | Outpatient (AMB) | payer MEDICARE, OTHER, SELFPAY ==
--- NOTE | 2023-09-22 08:06 | AM.OFFVISNUR ---
Intake Intake Visit Reasons: B12 Shot Allergies surgical tape Allergy (Mild, Uncoded 06/03/23 13:34) Rash Office Meds cyanocobalamin (vitamin B-12) 1,000 mcg/mL injection solution Performing Provider: Martita Raya MD [facility] Administered by: Rebeca Dodge RN on 09/22/23 08:06 Dose Route Admin Location Dispensed Lot Number Expiration Date NDC Glass Breaker 1,000 mcg IM Left deltoid 1 mL [id number] 08/20/24 54514-887-91 [employer] Coding Assessment & Plan Assessment & Plan Orders: Orders AMB Vitamin B12 Injection Patient Supplied Today E53.8 - Deficiency of other specified B group vitamins
== END 2023-09-22 08:17 | disposition home or self-care (01) ==
PROVIDERS: PCP Internal Medicine; Visit Provider Internal Medicine
DX: E53.8 Deficiency of other specified B group vitamins (principal)
CPT/HCPCS: 96372; J3420

== ENCOUNTER 2023-10-07 09:26 | Outpatient (AMB) | payer MEDICARE, OTHER, SELFPAY ==
[2023-10-07 09:28] VITALS: BP 132/70; PULSE 83; O2SAT 98; BMI 24.9
--- NOTE | 2023-10-07 09:28 | MHC.PC.OV ---
Vital Signs 10/07/23 09:28 Height 5 ft 6 in Weight 154 lb BMI 24.9 BP 132/70 Blood Pressure Location Lt brachial Position Sitting Pulse 83 Pulse Source Pulse Oximeter Pulse Oximetry (%) 98 Oxygen Delivery Method Room Air Intake Visit Reasons: B12 def, IGT, Hypercholestermia Allergies surgical tape Allergy (Mild, Uncoded 10/07/23 09:28) Rash Tobacco use date assessed: 10/07/23 Fall risk assessment: No Falls in past year Last assessed Fall Risk: 10/07/23 Dental Screening Dental Screen Date: 10/07/23 Did you have a dental visit in the last 12 months?: Yes Did you have a dental problem in the last 6 months where you did not have access to dental care?: No Was dental information given to patient?: Patient has dentist HPI B12 def, IGT, Hypercholestermia HPI Details 78-year-old female with impaired glucose tolerance history of breast cancer hypercholesterolemia osteopenia coming in for follow-up. Last seen in May for annual well visit. Mammogram is up-to-date bone density is due colonoscopy has been requested. scheduled to see 10/15/2023 [facility] Medical History (Updated 10/07/23 @ 10:03 by Martita Raya MD) Duodenal ulcer Hypercholesterolemia Stress incontinence Impaired glucose tolerance Migraine History of breast cancer Pernicious anemia B12 deficiency Surgical History History of dental surgery History of orthopedic surgery History of knee replacement procedure of left knee S/P left knee arthroscopy History of appendectomy History of tonsillectomy History of total abdominal hysterectomy and bilateral salpingo-oophorectomy H/O right mastectomy Family History Father Prostate cancer Lung cancer Mother CVD (cardiovascular disease) Renal artery aneurysm Social History (Updated 06/03/23 @ 14:25 by Martita Raya MD) Housing: House Alcohol intake: current Alcohol intake frequency: a few times a month Comment: holiday 1 beer Patient Tobacco Use Status: Never used Tobacco e-Cigarette/Vaping Use: Never Used Second Hand Smoke Exposure: No service: No Current occupational status: retired Cognitive needs: No Hearing needs: No Vision needs: Yes Questionnaire PHQ-9 Over the last 2 weeks, how often have you been bothered by any of the following problems? 1. Little interest or pleasure in doing things: not at all 2. Feeling down, depressed, or hopeless: not at all 3. Trouble falling or staying asleep, or sleeping too much: not at all 4. Feeling tired or having little energy: not at all 5. Poor appetite or overeating: not at all 6. Feeling bad about yourself - or that you are a failure or have let yourself or your family down: not at all 7. Trouble concentrating on things, such as reading the newspaper or watching television: not at all 8. Moving or speaking so slowly that other people could have noticed. Or the opposite - being so fidgety or restless that you have been moving around a lot more than usual: not at all 9. Thoughts that you would be better off or of hurting yourself in some way: not at all Total score: 0 Depression Screening Interpretation: Negative Depression Screening Done: Yes Source: Developed by Drs. Ronal Wheeler, Slime Oswald, Gustavo Horner and colleagues, with an educational ernesto from [employer]. Thrive Questionnaire Date Thrive assessed: 10/07/23 I am a: Patient What is your living situation today?: I have a steady place to live Within the past 12 months, did the food you bought not last and you didn't have the money to get more?: Never true Within the past 12 months, did you worry whether your food would run out before you got money to buy more?: Never true Do you have trouble paying for medicines?: No Do you have trouble getting transportation to medical appointments?: No Do you have trouble paying your heating and electricity bill?: No Do you have trouble taking care of your child, family member or friend?: No Do you have trouble with day-to-day activities such as bathing, preparing meals, shopping, managing finances, etc.?: No Are you currently unemployed and looking for a job?: No Are you interested in more education?: No Currently or been in a relationship where the following occur: no concerns reported THRIVE Score: 0 AUDIT C Alcohol Use Questionnaire (AUDIT-C) 1. How often do you have a drink containing alcohol?: Monthly or less (holidays ) 2. How many drinks containing alcohol do you have on a typical day when you are drinking?: 1 or 2 3. How often do you have six or more drinks on one occasion?: Never Total Score: 1 CLIFF-7 AMB Questionnaire CLIFF-7 Date CLIFF - 7 assessed: 10/07/23 Feeling nervous, anxious, or on edge: 0 = Not at all Not being able to stop or control worryin = Not at all Worrying too much about different things: 0 = Not at all Trouble relaxin = Not at all Being so restless that it is hard to sit still: 0 = Not at all Becoming easily annoyed or irritable: 0 = Not at all Feeling afraid as if something awful might happen: 0 = Not at all Total CLIFF-7 score (0-4 normal; 5-9 mild; 10-14 moderate; 15-21 severe): 0 Source: Developed by Drs. Ronal Wheeler, Slime Oswald, Gustavo Horner and colleagues, with an educational ernesto from [employer]. Physical exam (Primary Care) Vital Signs: Last Vital Signs Pulse 83 10/07/23 09:28 BP 132/70 10/07/23 09:28 Pulse Ox 98 10/07/23 09:28 Oxygen Delivery Method Room Air 10/07/23 09:28 BMI result Body Mass Index 24.9 Tobacco/Smoking Status: Tobacco use Status Tobacco use date assessed 10/07/23 10/07/23 09:35 Patient Tobacco Use Status Never used Tobacco 10/07/23 09:35 e-Cigarette/Vaping Use Never Used 10/07/23 09:35 PHQ-9: PHQ-9 Score PHQ-9: Total score 0 10/07/23 09:35 Depression Screening Interpretation: Negative Thrive Assessment: Date of Thrive Assessment Date Thrive assessed 10/07/23 10/07/23 09:35 Currently or been in a relationship where the following occur: no concerns reported Const General: alert; No acute distress Eyes Conjunctivae: conjunctivae normal Resp Auscultation: clear to auscultation bilaterally Cardio Rate: regular rate Rhythm: regular rhythm GI Inspection: Yes normal to inspection Extrem General: Yes normal to inspection and No edema Assessment and Plan Assessment & Plan (1) History of breast cancer: Comment: Right 1990 Dr. Reardon right radical mastectomy no chemo no radiation tamoxifen 5 years Code(s): Z85.3 - Personal history of malignant neoplasm of breast Plan: Patient is up-to-date with mammogram (2) Impaired glucose tolerance: Code(s): R73.02 - Impaired glucose tolerance (oral) Plan: Decrease the amount of carbohydrate intake, pasta, bread, rice and potatoes are all sugar and that is aside from all the sweet stuff, remember that fruits are good but they are Sweet also. (3) Hypercholesterolemia: Code(s): E78.00 - Pure hypercholesterolemia, unspecified Plan: Avoid fried foods, chicken skin, eggs, butter margarine, pastries and meat. Be it pork or beef they have a lot of cholesterol presently on simvastatin 40 mg once a day March 2023 last blood work (4) Colon cancer screening: Code(s): Z12.11 - Encounter for screening for malignant neoplasm of colon Plan: Patient is reminded about colonoscopy (5) Bilateral hand numbness: Code(s): R20.0 - Anesthesia of skin Orders: Orders NE electromyogram (EMG) Today R20.0 - Anesthesia of skin NE nerve conduction velocity Today R20.0 - Anesthesia of skin Vitamin B12 and Folate Today R20.0 - Anesthesia of skin Lipid Panel Today E78.00 - Pure hypercholesterolemia, unspecified Complete Blood Count Auto Diff Today E78.00 - Pure hypercholesterolemia, unspecified Comprehensive Met. Panel Today E78.00 - Pure hypercholesterolemia, unspecified Free T4 (Free Thyroxine) Today E78.00 - Pure hypercholesterolemia, unspecified Thyroid Stimulating Hormone Today E78.00 - Pure hypercholesterolemia, unspecified Hemoglobin A1c Today R73.02 - Impaired glucose tolerance (oral) XR DEXA axial skeleton Today M81.0 - Age-related osteoporosis without current pathological fracture, M85.80 - Other specified disorders of bone density and structure, unspecified site Coding Level of Care Code Est Pt Level 4 (92839) Diagnoses History of breast cancer Z85.3 Impaired glucose tolerance R73.02 Hypercholesterolemia E78.00 Colon cancer screening Z12.11 Bilateral hand numbness R20.0
== END 2023-10-07 10:56 | disposition home or self-care (01) ==
PROVIDERS: PCP Internal Medicine; Visit Provider Internal Medicine
DX: Z85.3 Personal history of malignant neoplasm of breast (principal); R73.02 Impaired glucose tolerance (oral); E78.00 Pure hypercholesterolemia, unspecified; Z12.11 Encounter for screening for malignant neoplasm of colon; R20.0 Anesthesia of skin
CPT/HCPCS: 99214

== ENCOUNTER 2023-10-21 08:24 | Outpatient (REF) | payer MEDICARE, OTHER, SELFPAY ==
--- NOTE | ~2023-10-21 | MM_ITS ---
EXAMINATION: BONE DENSITOMETRY CLINICAL INDICATION: Age-related osteoporosis without current pathological fracture. COMPARISON: Previous BD dated 06/26/2021 and baseline BD dated 08/09/2008. TECHNIQUE: Using a Stereotaxis DXA System (software version: 13.1) manufactured by [employer], dual-energy x-ray absorptiometry was performed of the lumbar spine and left hip. The images are of good technical quality. Summary results are attached. FINDINGS: LEFT FEMUR, NECK: Current: BMD 0.710 g/cm2, Z-score -0.4, T-score -2.4, osteopenia. Prior: BMD 0.721 g/cm2. Baseline: BMD 0.776 g/cm2. LEFT FEMUR, TOTAL: Current: BMD 0.753 g/cm2, Z-score -0.3, T-score -2.0, osteopenia, 3.3% decrease from previous, 5.8% decrease from baseline (<5% change is not significant). Prior: BMD 0.779 g/cm2. Baseline: BMD 0.799 g/cm2. AP SPINE L1-L4: Current: BMD 0.934 g/cm2, Z-score -0.3, T-score -2.1, osteopenia, 1.9% decrease from previous, 1.7% decrease from baseline (<5% change is not significant). Prior: BMD 0.952 g/cm2. Baseline: BMD 0.950 g/cm2. IDENTIFIED RISK FACTORS: Early menopause, secondary osteoporosis, hysterectomy. HISTORY OF FRACTURE: None listed. MEDICATIONS: ERT/SERMS. MM/XR DEXA axial skeleton IMPRESSION: 1. DIAGNOSIS: Osteopenia based on the lowest T-score value of -2.4 in the femoral neck applying World Health Organization criteria. 2. 10-YEAR FRACTURE RISK PREDICTION, FRAX: Not performed in this patient on estrogen or bone building treatments. 3. Treatment Recommendations: NOF guidelines recommend consideration for treatment in postmenopausal women and men age 50 and older presenting with the following: -A hip or vertebral (clinical or morphometric) fracture. -T-score less than or equal to -2.5 at the femoral neck or spine after appropriate evaluation to exclude secondary causes. -Low bone mass at the hip or spine and a 10-year fracture probability by FRAX of greater than or equal to 3% for hip fracture or greater than or equal to 20% for major osteoporotic fracture based on the [place] adapted WHO algorithm. 4. Other Recommendations: All treatment decisions require clinical judgment and consideration of individual patient factors, including patient preferences, comorbidities, previous drug use, risk factors not captured in the FRAX model (e.g. frailty, falls, vitamin D deficiency, increased bone turnover, interval significant decline in bone density) and possible under or overestimation of fracture risk by FRAX. Additional medical evaluation for secondary cause of low bone mineral density may be appropriate. FUTURE SCAN RECOMMENDATION: People with diagnosed cases of osteoporosis or at high risk for fracture should have regular bone mineral density tests. For patients eligible for Medicare, routine testing is allowed once every 2 years. The testing frequency can be increased to one year for patients who have rapidly progressing disease, those who are receiving or discontinuing medical therapy to restore bone mass, or have additional risk factors.
--- NOTE | 2023-10-21 08:27 | EMG_ITS ---
Bilateral median and ulnar motor and sensory studies were performed. Bilateral radial sensory studies were performed and paraspinal muscles were tested with a needle. IMPRESSION: Moderately severe bilateral median neuropathy across carpal tunnel. MD YURIDIA Vera/TIFFANIE / [id number]
== END 2023-10-21 08:25 | disposition home or self-care (01) ==
LOC: HO.NEURO 08:24
PROVIDERS: PCP Internal Medicine; Visit Provider Internal Medicine
DX: R20.0 Anesthesia of skin (principal); M81.0 Age-related osteoporosis without current pathological fracture; M85.80 Other specified disorders of bone density and structure, unspecified site
CPT/HCPCS: 77080; 95886; 95911

== ENCOUNTER 2023-11-04 08:13 | Outpatient (AMB) | payer MEDICARE, OTHER, SELFPAY ==
[2023-11-04 08:28] VITALS: BMI 25.1
--- NOTE | 2023-11-04 08:28 | A.OFFVIS_ITS ---
VS Expanded 11/04/23 08:28 Height 5 ft 6 in Weight 155 lb 10.342 oz BMI 25.1 Intake Visit Reasons: Pre-DM/ CONFIRMED Allergies surgical tape Allergy (Mild, Uncoded 10/07/23 09:28) Rash Nutrition Presentation Details: Pt presents for MNT follow up for Pre DM Pt reports appetite is good ,m akes own meals and keeps physically active reports choosing fish once/m, poultry more frequently fruit : 0-1/d pastries and similar: 1/d dairy: 2+/d vegetables: including starchy reports not adding salt to the foods physical activity: 6000 steps or more daily BS Monitoring Most Recent Diabetes Results: No Data to Display [facility] Medical History (Updated 10/31/23 @ 17:43 by Martita Raya MD) Bilateral hand numbness Duodenal ulcer Hypercholesterolemia Stress incontinence Impaired glucose tolerance Migraine History of breast cancer Pernicious anemia B12 deficiency Surgical History History of dental surgery History of orthopedic surgery History of knee replacement procedure of left knee S/P left knee arthroscopy History of appendectomy History of tonsillectomy History of total abdominal hysterectomy and bilateral salpingo-oophorectomy H/O right mastectomy Family History Father Prostate cancer Lung cancer Mother CVD (cardiovascular disease) Renal artery aneurysm Social History (Updated 06/03/23 @ 14:25 by Martita Raya MD) Housing: House Alcohol intake: current Alcohol intake frequency: a few times a month Comment: holiday 1 beer Patient Tobacco Use Status: Never used Tobacco e-Cigarette/Vaping Use: Never Used Second Hand Smoke Exposure: No service: No Current occupational status: retired Cognitive needs: No Hearing needs: No Vision needs: Yes Assessment & Plan Assessment & Plan (1) Impaired glucose tolerance: Code(s): R73.02 - Impaired glucose tolerance (oral) Category: Medical Plan Educate Pt on [id number] nilson meal plan ? Review healthy plate, symptoms of high blood sugar Used wt : 70 kg Est kcal as per MSJ: 1700 (40% carb, 30% fat/prot) Est fluid needs: 1750l/d (30 ml/kg bw) Rec fiber: increase to 8-10 g per day and gradually increase to 25 g/d as tolerated Rec Na: < 2000 mg /d Educate patient on: (R= Reviewed, V = verbalizes understanding N/R= Needs review N/A= not applicable) * Food sources of carbohydrates and serving adequate serving sizes : R V * Difference between complex carbohydrates and simple carbohydrates, role of fiber: R V * Differences between fats (MUFA/PUFA/saturated fats, trans fats) and food sources of various fats: R V * Food sources of sodium and salt and healthy modifications for heart health and kidney health: R V * Vitamins and minerals: V * How to interpret food labels: R V * Healthy Plate method concept: R V * Physical activity: benefits and precaution: R V Patient Instructions: Be mindful of foods high in sugar and salt (pastries/cookies/puddings) , aim at choosing 2 fruits a day instead Include at least 2 servings of calcium in your diet (1% milk, yogurt, kale, spinach, beans, sardines with bones keep physically active as able and keep hydrated Coding Level of Care Code Nutr Indiv Subseq (81369) Diagnoses Impaired glucose tolerance R73.02 Time Spent (min) 30
== END 2023-11-04 08:59 | disposition home or self-care (01) ==
PROVIDERS: PCP Internal Medicine; Visit Provider Dietitian, Registered
DX: R73.02 Impaired glucose tolerance (oral) (principal)

== ENCOUNTER → 2023-11-04 08:13 | Outpatient (BNVA) | payer MEDICARE, OTHER, SELFPAY | PROVIDERS: PCP Internal Medicine; Visit Provider Dietitian, Registered | DX: R73.02 Impaired glucose tolerance (oral) (principal); Z71.3 Dietary counseling and surveillance | CPT/HCPCS: 97803 ==

== ENCOUNTER 2023-12-10 07:53 | Outpatient (AMB) | payer MEDICARE, OTHER, SELFPAY ==
--- NOTE | 2023-12-10 08:03 | MHC.OFFVIS ---
Vital Signs 12/10/23 08:09 Height 5 ft 6 in Weight 155 lb BMI 25.0 Handedness Right Intake Visit Reasons: [employer]- bilateral hand pain and numbness Intake Note: Alida 78 year old right hand dominant female presents today for a new patient visit for her tingling and numbness on bilateral hands. 30 years ago she states she had carpal tunnel release done left, [place] Nilton Car[place] [facility] [place] Patient reports sharp pain and numbness and tingling that starts at the tip of her fingers and radiates into her wrist. States her left is worse than her right hand. She states her left hand has consistent numbness and tingling through out the day. Right hand causes her to wake up at night and shake off the numbness and tingling. States symptoms have been on going for many years but worsening started about 6 months ago. She expresses pain with gripping, grasping and taking care of her home. She has tried ice and Tylenol in the past with no relief. She has a hx of multiple knee surgeries causing her to have a hx of extensive use of crutches and canes which she believes might apart of the reason her CTS has worsened over the years. EMG done and would like to discuss surgical intervention. Allergies surgical tape Allergy (Mild, Uncoded 12/10/23 08:22) Rash HPI HPI [employer]- bilateral hand pain and numbness: Details: Alida is a 78 year old right hand dominant woman who presents for a NCS review of her bilateral hand numbness. She complains of numbness in the median nerve distribution bilaterally, L>R. Symptoms intermittent, but daily, worse at night. She says her symptoms are more constant in her left hand throughout the day, but her right hand causes her to wake up at night. She believes she had a left carpal tunnel release done in ~1993, but is unsure. She has a hx of multiple knee surgeries, which required her to use crutches for several years. She feels this may have worsened her carpal tunnel symptoms. She would like to discuss surgery. 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 [facility] Medical History Bilateral hand numbness Duodenal ulcer Hypercholesterolemia Stress incontinence Impaired glucose tolerance Migraine History of breast cancer Pernicious anemia B12 deficiency Surgical History History of dental surgery History of orthopedic surgery History of knee replacement procedure of left knee S/P left knee arthroscopy History of appendectomy History of tonsillectomy History of total abdominal hysterectomy and bilateral salpingo-oophorectomy H/O right mastectomy Family History Father Prostate cancer Lung cancer Mother CVD (cardiovascular disease) Renal artery aneurysm Social History Housing: House Alcohol intake: current Alcohol intake frequency: a few times a month Comment: holiday 1 beer Patient Tobacco Use Status: Never used Tobacco e-Cigarette/Vaping Use: Never Used Second Hand Smoke Exposure: No service: No Current occupational status: retired Cognitive needs: No Hearing needs: No Vision needs: Yes Review of Systems Const All systems reviewed & are unremarkable except as noted in HPI and below Physical Exam Vital Signs: BMI result Body Mass Index 25.0 Const General: cooperative, healthy appearing and no acute distress Orientation/consciousness: patient oriented x3 HEENT Head: Yes normocephalic and Yes atraumatic Eyes EOM: EOMs intact bilaterally Resp Effort & Inspection: normal respiratory effort and able to speak in complete sentences Cardio Jugular venous distension: no JVD Skin General skin exam: turgor normal Rashes: no rashes Neuro General: patient oriented x3 Extrem Other: Evaluation of Bilateral Upper Extremity: The patient is alert, oriented, and in no acute distress Neuro: Median, Ulnar, Radial nerves motor and sensory intact and sensation is normal to the tips of all digits today in clinic No thenar or intrinsic wasting Good APB muscle belly firing and good finger cross Vascular: Cap refill brisk ROM: She can make a fist and extend all her digits No locking or catching Skin: No lacerations or abrasions. General: No Ecchymosis. No Erythema or evidence of infection. ~1cm long scar over volar radial aspect distal forearm, more consistent with likely ganglion excision than a carpal tunnel release Nerve Conduction Study: IMPRESSION: Moderately severe bilateral median neuropathy across carpal tunnel. Filiberto Sellers MD 10/21/2023 Psych Appearance: grossly normal Affect: normal affect Attitude: cooperative Assessment & Plan Assessment & Plan (1) Carpal tunnel syndrome on both sides: Comment: September 2023Moderately severe bilateral median neuropathy across carpal tunnel. Code(s): G56.03 - Carpal tunnel syndrome, bilateral upper limbs Category: Medical Plan Assessment & Plan: 1. Left carpal tunnel syndrome, moderate-severe Symptoms intermittent, but daily, worse at night 2. Right carpal tunnel syndrome, moderate-severe Symptoms intermittent, but daily, worse at night I educated her about this condition I discussed operative and non-operative treatment options The patient would like to proceed with surgery, beginning with the left side The risks and benefits of operative treatment were discussed with the patient and the patient wishes to proceed with surgery. These risks include, but are not limited to risk of damage to blood vessels, nerves, tendons, infection, recurrence, incomplete relief of preoperative symptoms, persistent pain, possible need for further surgery and the risks associated with regional blocks and anesthesia. The plan is to take the patient to the operating room sometime in the next few weeks for the following procedures: 1. Left carpal tunnel release, under local All of the preoperative paperwork including the consent was reviewed today. All the patient's questions were answered. The patient understands that they will be contacted by our plastic surgery coordinator soon to schedule this procedure. She is retired and would like to be put on the cancellation list for a sooner DOS. She denies Diabetes, blood thinners, asthma, heart, lung, kidney issues Scribed for Siri Chowdary MD by Mj Hess, hospital medical assistant, on 12/10/23 at 8:30 AM, EST. Coding Level of Care Code New Pt Level 4 (26294) Diagnoses Carpal tunnel syndrome on both sides G56.03
[2023-12-10 08:09] VITALS: BMI 25.0
== END 2023-12-10 08:41 | disposition home or self-care (01) ==
PROVIDERS: PCP Internal Medicine; Visit Provider Orthopaedic Surgery
DX: G56.03 Carpal tunnel syndrome, bilateral upper limbs (principal)
CPT/HCPCS: 99204

== ENCOUNTER → 2023-12-10 07:53 | Outpatient (BNVA) | payer MEDICARE, OTHER, SELFPAY | PROVIDERS: PCP Internal Medicine; Visit Provider Orthopaedic Surgery | DX: G56.03 Carpal tunnel syndrome, bilateral upper limbs (principal) | CPT/HCPCS: 99202 ==

== ENCOUNTER 2024-02-09 08:38 | Day surgery (SDC) | payer MEDICARE, OTHER, SELFPAY ==
[2024-02-09 09:11] VITALS: BP 184/79; PULSE 95; RESP 16; TEMP 36.6; O2SAT 94; BMI 22.9
--- NOTE | 2024-02-09 09:58 | MHC.SHP ---
Pre-Procedural Eval Section A - 24 Hr Update-Section A only Date of Service: 02/09/24 The patient is an INPATIENT: No Changes since office visit: No Cold of Flu in the past 2 weeks, No New Medical Problems, No Changes in Medication and No Patient answered all questions The patient has been examined within 24 hours of the surgical procedure. The History & Physical has been completed within 30 days and I have reviewed it.: Yes Section B - Complete if H&P > 30 days Chief Complaint: Carpal tunnel syndrome, left upper limb Allergies: Allergies Allergy/AdvReac Type Severity Reaction Status Date / Time surgical tape Allergy Mild Rash Uncoded 12/10/23 08:22 Plan Diagnosis/Plan: Unchanged I have reviewed the history and physical and performed a pertinent physical examination on my patient. No changes have occurred unless specified. Time Spent With Patient Time: Total time managing care of this patient today ____ minutes.
--- NOTE | 2024-02-09 10:00 | P.OP_ITS ---
Operative Note Operative Note Date of Service: 02/09/24 Narrative: Preop diagnosis: 1. Left Carpal tunnel syndrome Postop diagnosis: same Procedure: 1. Left Carpal tunnel release Surgeon: Siri Chowdary MD Bindery Worker: None Anesthesia: local block using 1% lidocaine with epinephrine Findings: Thickened transverse carpal ligament. EBL: Less than 5 mL Specimens: None Complications: None Disposition: Brought to recovery room in stable condition Plan: Follow-up for 10-14 days for wound check and suture removal Indications: The patient is 78 years old, with left carpal tunnel syndrome that has been unresponsive to nonoperative management. The risks and benefits of operative treatment including but not limited to risk of damage to blood vessels, nerves, tendons, infection, persistent pain, persistent symptoms, or possible need for additional surgery were discussed with the patient and the patient wishes to proceed with surgery. Procedure: Once consent was obtained a local block was performed using a combination of 1% lidocaine with epinephrine. The patient was then brought back to the operating suite and placed on the operative table in supine position. The left upper extremity was prepped and draped in a standard surgical fashion. Once assured that we had a good block, a 2.0 cm longitudinal incision was made centered over the carpal tunnel. The incision was made through the skin to the subcutaneous tissues using a #15 blade. Dissection was made down to the level of the transverse carpal ligament with care being taken to protect the palmar cutaneous nerve. Once the transverse carpal ligament was clearly visualized, a longitudinal incision was made in the transverse carpal ligament 1st using a #15 blade, then using tenotomy scissors under direct visualization. Care was taken to look for and protect the motor branch of the median nerve when seen in this area. Once satisfied with our carpal tunnel release the wound was copiously irrigated with normal saline and hemostasis was obtained with a brief period of local pressure. The skin edges were reapproximated with some 5.0 nylon suture material and a sterile dressing was applied. The patient appears to have tolerated the procedure well and with no complicatio ns. All digits were well vascularized at the conclusion of the case.
== END 2024-02-09 11:12 | disposition home or self-care (01) ==
PROVIDERS: PCP Internal Medicine; Visit Provider Orthopaedic Surgery
PROC: (CPT 64721; principal; 2024-02-09 14:10)
DX: G56.02 Carpal tunnel syndrome, left upper limb (principal)
CPT/HCPCS: 64721; J0171

== ENCOUNTER → 2024-02-09 08:38 | Outpatient (BNV) | payer MEDICARE, OTHER, SELFPAY | PROVIDERS: PCP Internal Medicine; Visit Provider Orthopaedic Surgery | DX: G56.02 Carpal tunnel syndrome, left upper limb (principal) | CPT/HCPCS: 64721 ==

== ENCOUNTER 2024-02-18 08:38 | Outpatient (AMB) | payer MEDICARE, OTHER, SELFPAY ==
[2024-02-18 08:40] VITALS: BP 142/74; PULSE 94; O2SAT 98; BMI 23.9
--- NOTE | 2024-02-18 08:40 | A.OFFPC_ITS ---
Vital Signs 02/18/24 08:40 Height 5 ft 6 in Weight 148 lb 0.6 oz BMI 23.9 BP 142/74 H Blood Pressure Location Lt brachial Position Sitting Pulse 94 Pulse Source Pulse Oximeter Pulse Oximetry (%) 98 Oxygen Delivery Method Room Air Intake Visit Reasons: [facility] 02/12 broken rib Intake Note: Patient is here to follow-up after a visit the emergency department at [facility] on 02/13/24. Safety Risk Lead Required: No Allergies surgical tape Allergy (Mild, Uncoded 02/18/24 08:40) Rash Medication List - Last Reconciled 02/18/24 by Chelsea Faust PA-C cyanocobalamin (vitamin B-12) 1,000 mcg PO DAILY oxycodone mg PO oxycodone-acetaminophen 5-325 mg 1 tab PO Q6H PRN simvastatin 40 mg PO DAILY sumatriptan succinate 25 mg PO .QD PRN 90 days Tobacco use date assessed: 10/07/23 Fall risk assessment: 1 Fall in past year Last assessed Fall Risk: 02/18/24 Dental Screening Dental Screen Date: 10/07/23 HPI [facility] 02/12 broken rib HPI Details 78-year-old female with past medical his tory impaired glucose tolerance, hypercholesterolemia, osteopenia, and history of breast cancer last seen by Dr. Raya September 2023 coming in for hospital follow up. Patient was seen in [facility] ED 02/13/2024 CT cervical spine, CT of the head, and CT of the face were within normal limits. CT of the chest showed fracture of posterior right 6th rib. Patient states she was out walking her dog when she had a fall in her driveway on the way home. She fell on the right side had some bruising to the right eye, scrapes on her right hand, and right rib fracture. She was sent home with breathing exercises to prevent infection and has been doing them 2-3 times per day. She does still continue to have bruising on her face but states it has improved and denies bruising on the chest. She does continue to have severe rib pain and has been using oxycodone sparingly over the last 5 days. She sleeps in her recliner as this is more comfortable for her. [facility] Medical History Bilateral hand numbness Duodenal ulcer Hypercholesterolemia Stress incontinence Impaired glucose tolerance Migraine History of breast cancer Pernicious anemia B12 deficiency Surgical History History of dental surgery History of orthopedic surgery History of knee replacement procedure of left knee S/P left knee arthroscopy History of appendectomy History of tonsillectomy History of total abdominal hysterectomy and bilateral salpingo-oophorectomy H/O right mastectomy Family History Father Prostate cancer Lung cancer Mother CVD (cardiovascular disease) Renal artery aneurysm Social History Housing: House Alcohol intake: current Alcohol intake frequency: a few times a month Comment: holiday 1 beer Patient Tobacco Use Status: Never used Tobacco e-Cigarette/Vaping Use: Never Used Second Hand Smoke Exposure: No service: No Current occupational status: retired Cognitive needs: No Hearing needs: No Vision needs: Yes Questionnaire Thrive Questionnaire Date Thrive assessed: 10/07/23 I am a: Patient What is your living situation today?: I have a steady place to live Within the past 12 months, did the food you bought not last and you didn't have the money to get more?: Never true Within the past 12 months, did you worry whether your food would run out before you got money to buy more?: Never true Do you have trouble paying for medicines?: No Do you have trouble getting transportation to medical appointments?: No Do you have trouble paying your heating and electricity bill?: No Do you have trouble taking care of your child, family member or friend?: No Do you have trouble with day-to-day activities such as bathing, preparing meals, shopping, managing finances, etc.?: No Are you currently unemployed and looking for a job?: No Are you interested in more education?: No THRIVE Score: 0 AUDIT C Alcohol Use Questionnaire (AUDIT-C) 1. How often do you have a drink containing alcohol?: Monthly or less (holidays ) 2. How many drinks containing alcohol do you have on a typical day when you are drinking?: 1 or 2 3. How often do you have six or more drinks on one occasion?: Never Total Score: 1 CLIFF-7 AMB Questionnaire CLIFF-7 Date CLIFF - 7 assessed: 10/07/23 Source: Developed by Drs. Ronal Wheeler, Slime Oswald, Gustavo Horner and colleagues, with an educational ernesto from [employer]. Review of Systems Const Denies body aches, Denies fatigue and Denies fever(s) Eyes Details: Bruising around the right eye vision changes ENT Reports no additional complaints Card Denies chest pain, Denies syncope, Denies leg edema, Denies lightheadedness and Denies dyspnea Resp Details: Pain with deep breath Denies cough, Denies hemoptysis and Denies dyspnea GI Reports no additional complaints Reports no additional complaints Musc Details: Right-sided rib pain Skin/Breast Reports system reviewed and no additional complaints, except as documented Neuro Reports no additional complaints and Denies syncope Endo Denies fatigue Physical exam (Primary Care) Vital Signs: Last Vital Signs Pulse 94 02/18/24 08:40 BP 142/74 H 02/18/24 08:40 Pulse Ox 98 02/18/24 08:40 Oxygen Delivery Method Room Air 02/18/24 08:40 BMI result Body Mass Index 23.9 Tobacco/Smoking Status: Tobacco use Status Tobacco use date assessed 10/07/23 02/18/24 08:41 Patient Tobacco Use Status Never used Tobacco 02/18/24 08:41 e-Cigarette/Vaping Use Never Used 02/18/24 08:41 Thrive Assessment: Date of Thrive Assessment Date Thrive assessed 10/07/23 02/18/24 08:41 Const General: cooperative, healthy appearing, comfortable and no acute distress Orientation/consciousness: patient oriented x3 HENMT Other: Bruising in different stages of healing on around the right orbit Head: Yes normocephalic Ears: hearing grossly normal bilaterally General nose exam: Normal external nose present Eyes General: appearance normal, both eyes and all related structures Conjunctivae: conjunctivae normal Neck Neck: Yes full ROM and Yes no lymphadenopathy Chest Other: Pain to palpation of right ribs without bruising or swelling Resp Effort & Inspection: normal respiratory effort Auscultation: clear to auscultation bilaterally, no crackles, no rales, no rhonchi and no wheezes Cardio Rate: regular rate Rhythm: regular rhythm Skin General skin exam: no rashes or lesions noted Neuro General: patient oriented x3 Gait exam (Neuro): Normal gait present Extrem General: Yes normal to inspection, Yes full ROM and No edema Psych Affect: normal affect Attitude: cooperative Insight: Good insight present (Psych) Judgement: Good judgement present (Psych) Assessment and Plan Assessment & Plan (1) Rib fracture: Code(s): S22.39XA - Fracture of one rib, unspecified side, initial encounter for closed fracture Plan: Patient does continue to have right-sided rib pain but has been working on her breathing exercises to prevent infection. Still having difficulty sleeping at night due to pain has been sleeping in a recliner. Advised patient to use Tylenol and ibuprofen primarily for pain as well as lidocaine patches which were prescribed today. We will refill short course of oxycodone for breakthrough pain to be used sparingly. Discussed with patient possible side effects of oxycodone. Take this medication as prescribed and do not share with other people. Plan This note was constructed using voice recognition software. While every effort has been made to ensure accuracy and teletypesetter, still areas may have been included sometimes these areas may affect the content or meeting of the given symptoms. Total time spent caring for the patient today was 20 minutes. This includes time spent before the visit reviewing the chart, time spent during the visit, and time spent after the visit and documentation. Medications: New lidocaine 5% leave on most painful area for up to 12 hrs 1 patch topical DAILY 15 ea 0RF oxycodone Partial Fill upon patient request. 5 mg PO BID 3 days PRN 6 tabs 0RF pain Discontinued oxycodone-acetaminophen 5-325 mg Partial Fill upon patient request. Discontinued Reason: Patient no longer taking 1 tab PO Q6H PRN 5 tabs 0RF pain Coding Level of Care Code Est Pt Level 3 (16153) Diagnoses Rib fracture S22.39XA
== END 2024-02-18 09:16 | disposition home or self-care (01) ==
PROVIDERS: PCP Internal Medicine
DX: S22.31XA Fracture of one rib, right side, initial encounter for closed fracture (principal)
CPT/HCPCS: 99213

== ENCOUNTER 2024-02-24 08:36 | Outpatient (AMB) | payer MEDICARE, OTHER, SELFPAY ==
--- NOTE | 2024-02-24 08:46 | A.OFFVIS_ITS ---
Vital Signs 02/24/24 08:54 Height 5 ft 6 in Weight 148 lb 6 oz BMI 23.9 Intake Visit Reasons: PO-Lt CTR 02/08/24 Intake Note: Alida Abreu is a 78 yo right hand dominant female who presents today post operatively s/p left carpal tunnel release done 02/08/[address] Chowdary. Patient reports numbness on the left thumb. Denies locking on finger. Sutures removed in office today and steri strips applied. Allergies surgical tape Allergy (Mild, Uncoded 02/24/24 08:55) Rash HPI HPI PO-Lt CTR 02/08/24: Details: Alida is a 78 year old right hand dominant woman who returns S/P left carpal tunnel release, DOS: 02/08/24. She says she is doing well and her sensation is improving. She continues to complain of numbness in her left thumb, but says her index & middle fingers are now normal. She reports good relief of her nighttime symptoms. She complains of numbness in the median nerve distribution of her right hand. Symptoms intermittent, but daily, worse at night. She would like to discuss surgery for her right hand as this is now bothering her more and keeping her awake at night. She has a hx of multiple knee surgeries, which required her to use crutches for several years. She feels this may have worsened her carpal tunnel symptoms. She says her knee buckled recently when walking, causing her to fall and injure herself, including facial abrasions and a broken rib. 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 [facility] Medical History Bilateral hand numbness Duodenal ulcer Hypercholesterolemia Stress incontinence Impaired glucose tolerance Migraine History of breast cancer Pernicious anemia B12 deficiency Surgical History History of dental surgery History of orthopedic surgery History of knee replacement procedure of left knee S/P left knee arthroscopy History of appendectomy History of tonsillectomy History of total abdominal hysterectomy and bilateral salpingo-oophorectomy H/O right mastectomy Family History Father Prostate cancer Lung cancer Mother CVD (cardiovascular disease) Renal artery aneurysm Social History (Updated 02/24/24 @ 08:56 by MIRIAM Currie) Housing: House Alcohol intake: current Alcohol intake frequency: a few times a month Comment: holiday 1 beer Patient Tobacco Use Status: Never used Tobacco e-Cigarette/Vaping Use: Never Used Second Hand Smoke Exposure: No service: No Current occupational status: retired Current occupation: rt handed Cognitive needs: No Hearing needs: No Vision needs: Yes Review of Systems Const All systems reviewed & are unremarkable except as noted in HPI and below Physical Exam Vital Signs: BMI result Body Mass Index 23.9 Const General: no acute distress and alert Orientation/consciousness: patient oriented x3 Neuro General: patient oriented x3 Extrem Other: The patient was alert oriented and in no acute distress The incision is healing well with no erythema drainage or evidence of infection. Sutures removed and Steri-Strips applied She can make a fist and extend all her digits Sensation is improved and now normal in the index & middle fingers. She continues to have numbness in the thumb. Decreased subjective sensation in the right median nerve distribution today in clinic. Cap refill is brisk ~1cm long scar over volar radial aspect distal forearm, more consistent with likely ganglion excision than a carpal tunnel release Nerve Conduction Study: IMPRESSION: Moderately severe bilateral median neuropathy across carpal tunnel. Filiberto Sellers MD 10/21/2023 Psych Appearance: grossly normal Affect: normal affect Attitude: cooperative Assessment & Plan Assessment & Plan (1) Carpal tunnel syndrome on both sides: Comment: September 2023Moderately severe bilateral median neuropathy across carpal tunnel. Code(s): G56.03 - Carpal tunnel syndrome, bilateral upper limbs Category: Medical Plan Assessment & Plan: 1. Left carpal tunnel syndrome, S/P release DOS: 02/08/24 Now with improved and normal sensation to the index & middle fingers, continues to have dense numbness in the thumb The patient appears to be doing well post-operatively I educated her about the post-operative course I explained the signs and symptoms of infection, if the patient develops any new or worsening erythema, drainage, pain, or warmth they should contact the clinic or attend the ED. I discussed activity modifications, she is to lift nothing heavier than a cellphone for the next two weeks She will perform gentle ROM exercises at home She should avoid any underwater activities for the next 5 days She should gently massage about the incision site to reduce the risk of hypersensitivity 2. Right carpal tunnel syndrome, moderate-severe Decreased subjective sensation in the median nerve distribution, worse at night I educated her about this condition I discussed operative and non-operative treatment options The patient would like to proceed with surgery The risks and benefits of operative treatment were discussed with the patient and the patient wishes to proceed with surgery. These risks include, but are not limited to risk of damage to blood vessels, nerves, tendons, infection, recurrence, incomplete relief of preoperative symptoms, persistent pain, possible need for further surgery and the risks associated with regional blocks and anesthesia. The plan is to take the patient to the operating room sometime in the next few weeks for the following procedures: 1. Right carpal tunnel release, under local All of the preoperative paperwork including the consent was reviewed today. All the patient's questions were answered. The patient understands that they will be contacted by our surgery consultant soon to schedule this procedure. She denies Diabetes, blood thinners, asthma, heart, lung, kidney issues Scribed for Siri Chowdary MD by Mj Hess, electromedical service engineer, on 02/24/24 at 9:05 AM, EST. Coding Level of Care Code Est Pt Level 4 (75491) Diagnoses Carpal tunnel syndrome on both sides G56.03
[2024-02-24 08:54] VITALS: BMI 23.9
== END 2024-02-24 09:11 | disposition home or self-care (01) ==
PROVIDERS: PCP Internal Medicine; Visit Provider Orthopaedic Surgery
DX: G56.03 Carpal tunnel syndrome, bilateral upper limbs (principal)
CPT/HCPCS: 99214

== ENCOUNTER → 2024-02-24 08:36 | Outpatient (BNVA) | payer MEDICARE, OTHER, SELFPAY | PROVIDERS: PCP Internal Medicine; Visit Provider Orthopaedic Surgery | DX: Z47.89 Encounter for other orthopedic aftercare (principal); G56.01 Carpal tunnel syndrome, right upper limb; Z98.890 Other specified postprocedural states | CPT/HCPCS: 99212 ==

== ENCOUNTER 2024-03-29 13:57 | Day surgery (SDC) | payer MEDICARE, OTHER, SELFPAY ==
[2024-03-29 15:12] VITALS: BMI 24.8
[2024-03-29 15:18] VITALS: BP 163/76; PULSE 102; RESP 16; TEMP 36.9; O2SAT 94
--- NOTE | 2024-03-29 17:08 | P.OP_ITS ---
Operative Note Operative Note Date of Service: 03/29/24 Narrative: Preop diagnosis: 1. Right Carpal tunnel syndrome Postop diagnosis: same Procedure: 1. 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 EBL: Less than 5 mL Specimens: None Complications: None Disposition: Brought to recovery room in stable condition Plan: Follow-up for 10-14 days for wound check and suture removal Indications: The patient is 78 years old, with right carpal tunnel syndrome that has been unresponsive to nonoperative management. The risks and benefits of operative treatment including but not limited to risk of damage to blood vessels, nerves, tendons, infection, persistent pain, persistent symptoms, or possible need for additional surgery were discussed with the patient and the patient wishes to proceed with surgery. Procedure: Once consent was obtained a local block was performed using a combination of 1% lidocaine with epinephrine. The patient was then brought back to the operating suite and placed on the operative table in supine position. The right upper extremity was prepped and draped in a standard surgical fashion. Once assured that we had a good block, a 2.0 cm longitudinal incision was made centered over the carpal tunnel. The incision was made through the skin to the subcutaneous tissues using a #15 blade. Dissection was made down to the level of the transverse carpal ligament with care being taken to protect the palmar cutaneous nerve. Once the transverse carpal ligament was clearly visualized, a longitudinal incision was made in the transverse carpal ligament 1st using a #15 blade, then using tenotomy scissors under direct visualization. Care was taken to look for and protect the motor branch of the median nerve when seen in this area. Once satisfied with our carpal tunnel release the wound was copiously irrigated with normal saline and hemostasis was obtained with a brief period of local pressure. The skin edges were reapproximated with some 5.0 nylon suture material and a sterile dressing was applied. The patient appears to have tolerated the procedure well and with no complic ations. All digits were well vascularized at the conclusion of the case.
--- NOTE | 2024-03-29 17:08 | MHC.SHP ---
Pre-Procedural Eval Section A - 24 Hr Update-Section A only Date of Service: 03/29/24 The patient is an INPATIENT: No Changes since office visit: No Cold of Flu in the past 2 weeks, No New Medical Problems, No Changes in Medication and No Patient answered all questions The patient has been examined within 24 hours of the surgical procedure. The History & Physical has been completed within 30 days and I have reviewed it.: Yes Section B - Complete if H&P > 30 days Chief Complaint: Carpal tunnel syndrome, right upper limb Allergies: Allergies Allergy/AdvReac Type Severity Reaction Status Date / Time surgical tape Allergy Mild Rash Uncoded 03/29/24 15:20 Plan Diagnosis/Plan: Unchanged I have reviewed the history and physical and performed a pertinent physical examination on my patient. No changes have occurred unless specified. Time Spent With Patient Time: Total time managing care of this patient today ____ minutes.
[2024-03-29 19:01] VITALS: BP 172/91; PULSE 90; RESP 16; TEMP 36.2; O2SAT 94
== END 2024-03-29 19:13 | disposition home or self-care (01) ==
PROVIDERS: PCP Internal Medicine; Visit Provider Orthopaedic Surgery
PROC: (CPT 64721; principal; 2024-03-29 14:30)
DX: G56.01 Carpal tunnel syndrome, right upper limb (principal); R20.0 Anesthesia of skin; L23.1 Allergic contact dermatitis due to adhesives; E78.00 Pure hypercholesterolemia, unspecified; R73.02 Impaired glucose tolerance (oral); G43.909 Migraine, unspecified, not intractable, without status migrainosus; D51.0 Vitamin B12 deficiency anemia due to intrinsic factor deficiency; Z85.3 Personal history of malignant neoplasm of breast; Z79.899 Other long term (current) drug therapy; Z98.890 Other specified postprocedural states
CPT/HCPCS: 64721; J0171; J2003

== ENCOUNTER → 2024-03-29 13:57 | Outpatient (BNV) | payer MEDICARE, OTHER, SELFPAY | PROVIDERS: PCP Internal Medicine; Visit Provider Orthopaedic Surgery | DX: G56.01 Carpal tunnel syndrome, right upper limb (principal) | CPT/HCPCS: 64721 ==

== ENCOUNTER 2024-04-13 13:56 | Outpatient (AMB) | payer OTHER, SELFPAY ==
--- NOTE | 2024-04-13 14:37 | MHC.OFFVIS ---
Intake Visit Reasons: PO RT CTR 03/29/24 AR Intake Note: Alida Abreu is a 78 year old female who presents to the office today for a PO RT CTR 03/29/24 AR. Pt states she is doing well. Pt states her ROM is good and is able to make a fist. Pt denies any numbness or tingling in her hand or fingers. Allergies surgical tape Allergy (Mild, Uncoded 04/13/24 14:37) Rash HPI HPI PO RT CTR 03/29/24 AR: Details: Patient is a 78-year-old female who presents for postoperative evaluation status post right carpal tunnel release, DOS 03/29/[address] Chowdary. Today, the patient reports that she is feeling well, and then she has no concerns with the incision site. Patient reports that she has normal sensation in the right hand. No other acute complaints or concerns at this time. [facility] Medical History Bilateral hand numbness Duodenal ulcer Hypercholesterolemia Stress incontinence Impaired glucose tolerance Migraine History of breast cancer Pernicious anemia B12 deficiency Surgical History History of dental surgery History of orthopedic surgery History of knee replacement procedure of left knee S/P left knee arthroscopy History of appendectomy History of tonsillectomy History of total abdominal hysterectomy and bilateral salpingo-oophorectomy H/O right mastectomy Family History Father Prostate cancer Lung cancer Mother CVD (cardiovascular disease) Renal artery aneurysm Social History (Updated 02/24/24 @ 08:56 by MIRIAM Currie) Housing: House Alcohol intake: current Alcohol intake frequency: a few times a month Comment: holiday 1 beer Patient Tobacco Use Status: Never used Tobacco e-Cigarette/Vaping Use: Never Used Second Hand Smoke Exposure: No service: No Current occupational status: retired Current occupation: rt handed Cognitive needs: No Hearing needs: No Vision needs: Yes Physical Exam Extrem Other: Patient is alert, oriented, and in no acute distress. Neuro: Normal sensation of the tips of all digits of the right hand at this time Vascular: Cap refill brisk Pain: Patient reports no tenderness to palpation about the incision site on the right volar wrist at the level of the transverse carpal ligament ROM: Patient can make a closed fist and extend all digits of the right hand fully and without difficulty Skin: Well approximated and well healing incision site noted on the volar aspect of the right wrist No evidence of infection General: No ecchymosis, erythema, or evidence of infection. Psych: Appears grossly normal Affect normal Attitude cooperative Assessment & Plan Assessment & Plan (1) Carpal tunnel syndrome on both sides: Comment: September 2023Moderately severe bilateral median neuropathy across carpal tunnel. Code(s): G56.03 - Carpal tunnel syndrome, bilateral upper limbs Category: Medical Plan 1. Right carpal tunnel syndrome status post carpal tunnel release DOS 03/29/2024 Patient appears to be recovering well postoperatively Patient is educated about typical recovery course At this time, patient is informed that she will not require any acute follow-up, as she has no evidence of stiffness or postoperative complications Patient was amenable to this plan Patient will follow-up as needed with any acute concerns Coding Level of Care Code Global (55220) Diagnoses Carpal tunnel syndrome on both sides G56.03
== END 2024-04-13 14:51 | disposition home or self-care (01) ==
PROVIDERS: PCP Internal Medicine
DX: G56.03 Carpal tunnel syndrome, bilateral upper limbs (principal)
CPT/HCPCS: 99024

== ENCOUNTER → 2024-04-13 13:56 | Outpatient (BNVA) | payer OTHER, SELFPAY | PROVIDERS: PCP Internal Medicine ==

== ENCOUNTER 2024-05-17 08:08 | Outpatient (REF) | payer OTHER, SELFPAY ==
--- NOTE | ~2024-05-17 | MM_ITS ---
EXAMINATION: MM SCREENING DIGITAL BREAST TOMOSYNTHESIS, BILATERAL CLINICAL INFORMATION: Screening. Asymptomatic. Right mastectomy. COMPARISON: Mammography: This study is compared with prior exams dating back to TECHNIQUE: Digital breast tomosynthesis is performed in both the craniocaudal and mediolateral oblique views along with computer-aided detection (CAD). Synthesized 2D images are generated from the tomosynthesis. FINDINGS: The breasts are heterogeneously dense, which may obscure small masses (ACR BI-RADS breast composition Category c). There are no significant masses, abnormal calcifications, or other abnormalities. MM/MM tomosynthesis screening LT IMPRESSION: No mammographic evidence of malignancy. ASSESSMENT: BI-RADS BI-RADS 1 - Negative RECOMMENDATION: Routine annual mammography screening. 1 year F/U This examination should not preclude the clinical evaluation of a suspicious palpable abnormality. This patient's information was entered into a reminder system with a target due date for their next mammogram. Electronically signed by: Kim Pope DO 05/18/2024 11:02 AM ARMANDO
== END 2024-05-17 08:09 | disposition home or self-care (01) ==
LOC: HO.MAMMO 08:08
PROVIDERS: PCP Internal Medicine; Visit Provider Internal Medicine
DX: Z12.31 Encounter for screening mammogram for malignant neoplasm of breast (principal)
CPT/HCPCS: 77063; 77067

== ENCOUNTER → 2024-05-17 08:30 | Outpatient (BNV) | payer OTHER, SELFPAY | PROVIDERS: PCP Internal Medicine; Visit Provider Internal Medicine | DX: Z12.31 Encounter for screening mammogram for malignant neoplasm of breast (principal) | CPT/HCPCS: 77063; 77067 ==

== ENCOUNTER 2024-06-04 07:42 | Outpatient (AMB) | payer OTHER, SELFPAY ==
--- OUTSIDE RECORDS SUMMARY | 2024-06-04 07:44 | XMS_ITS | Patient Health Record ---
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 Name Role Phone Martita Raya MD Primary Care Provider Ronal Montano [phone] ALLERGIES Allergen (clinical drug ingredient) Drug/Non Drug Allergy documented on EMR Reaction Allergy Type Onset Date Status Surgical Tape (uncoded) Unknown Allergy Active REASON FOR REFERRAL No Information MEDICATIONS Medication SIG (Take, Route, Frequency, Duration) Notes Start Date End Date Status SUMAtriptan Succinate 25 MG Oral for 90 Not-Taking Simvastatin 40mg Act albino Cyanocobalamin 1000 MCG 1 tablet Orally Once a day Active Multivitamin - 1 tablet Orally Once a day for 30 day(s) Active SOCIAL HISTORY Sex Assigned At : Social History Observation Description Sex Assigned At Unknown PROBLEMS Problem Type ICD Code Onset Dates Problem Status W/U Status Risk SNOMED Code Notes Problem Colon cancer screening (Z12.11) Active confirmed Colon cancer screening (633206930) VITAL SIGNS Blood pressure diastolic 00 mm Hg 10/16/2023 Height 65.5 in 10/16/2023 Blood pressure systolic 00 mm Hg 10/16/2023 Weight 154 lbs 10/16/2023 BMI 25.23 kg/m2 10/16/2023 Encounters Encounter Location Date Provider Diagnosis [facility] [address] [place] [phone] 10/16/2023 Ronal Nolan Colon cancer screening Z12.11 ASSESSMENTS Encounter Date Diagnosis Assessment Notes Treatment Notes Treatment Clinical Notes 10/16/2023 Colon cancer screening (ICD-10 - Z12.11) Since you want to hold off on the colonoscopy be sure to obtain a Cologuard test from Dr. Raya. Let me know the results. If it is positive we would want to definitely set up a colonoscopy. PLAN OF TREATMENT Pending Test Test Name Order Date IRON + IBC (FE) 01/10/2012 FERRITIN 01/10/2012 CBC w DIFF 08/23/2011 CBC w DIFF 01/10/2012 CELIAC PANEL #10 08/23/2011 ENDOMYSIAL IGA 08/23/2011 TRANSGLUTAMINASE AB IGA 08/23/2011 TRANSGLUTAMINASE AB IGG 08/23/2011 Future Test Test Name Order Date UPPER GI ENDOSCOPY 08/23/2011 COLONOSCOPY 08/23/2011 Insurance Providers Payer Name Payer Address Payer Phone Subscriber Number Group Number Insured Name Patient Relationship to Insured Coverage Start Date Coverage End Date MEDICARE OF [place] [address] [place] [address] [id number] MICAELA HUTSON Self - patient is the insured [employer] [address] [place] [phone] [id number] MICAELA HUTSON Self - patient is the insured MEDICAL (GENERAL) HISTORY Medical History History ICD Code Pernicious anemia 02/2011--receiving B12 shots Hyperlipidemia Denies TN,DM,CVA,Lung disease,renal dise ase Negative screening colonoscopy in 2008 Right breast CA 1990 Negative colonoscopy in 2011 --this was done for evaluation of iron deficiency anemia EGD in 2011 for the evaluati on of iron deficiency anemia revealed a duodenal ulcer, duodenitis, and hiatal hernia. Biopsies negative for H.pylori and celiac disease Surgical History Surgery Date(Month/Year) Right mastectomy Left knee replacement 2002 [facility] Oral surgery Left carpal tunnel
--- OUTSIDE RECORDS SUMMARY | 2024-06-04 07:44 | XMS_ITS ---
Author Organization [facility] Address [address] [place] [phone] Care Team Providers Care Key Sander Name Role Phone Martita Raya MD Primary Care Provider Rnoal Montano [phone] ALLERGIES Allergen (clinical drug ingredient) Drug/Non Drug Allergy documented on EMR Reaction Allergy Type Onset Date Status Surgical Tape (uncoded) Unknown Allergy Active REASON FOR VISIT Patient presents today for a colon screening MEDICATIONS Medication SIG (Take, Route, Frequency, Duration) Notes Start Date End Date Status SUMAtriptan Succinate 25 MG Oral for 90 Not-Taking Simvastatin 40mg Act albino Cyanocobalamin 1000 MCG 1 tablet Orally Once a day Active Multivitamin - 1 tablet Orally Once a day for 30 day(s) Active SOCIAL HISTORY Sex Assigned At : Social History Observation Description Sex Assigned At Unknown Alcohol Screen Question Answer Notes Did you have a drink contain ing alcohol in the past year? Yes Points 1 Interpretation Negative How often did you have 6 or more drinks on one occasion in the past year? Never (0 point) How many drinks did you have on a typical day when you were drinking in the past year? 1 or 2 drinks (0 point) How often did you have a dri nk containing alcohol in the past year? Monthly or less (1 point) PROBLEMS Problem Type ICD Code Onset Dates Problem Status W/U Status Risk SNOMED Code Notes Problem Colon cancer screening (Z12.11) Active confirmed Colon cancer screening (780050416) VITAL SIGNS BMI 25.23 kg/m2 10/16/2023 Blood pressure systolic 00 mm Hg 10/16/19 24 Blood pressure diastolic 00 mm Hg 024 Height 65.5 in 10/16/2023 Weight 154 lbs 10/16/2023 Encounters Encounter Location Date Provider Diagnosis [facility] [address] [place] [phone] 10/16/2023 Ronal Nolan Colon cancer screening Z12.11 [...] set up a colonoscopy. PLAN OF TREATMENT Treatment Notes Assessment Notes Colon cancer screening Since you want to hold off on the colonoscopy be sure to obtain a Cologuard test from Dr. Raya. Let me know the results. If it is positive we would want to definitely set up a colonoscopy. Next Appt Details Follow Up: prn, Reason: Progress Notes * Examination Category Sub-Category Detail Notes General Examination GENERAL APPEARANCE: pleasant , well nourished, well developed, in no acute distress EYES: sclera non-icteric NECK/THYROID: no cervical lymphade nopathy, neck supple HEART: S1, S2 normal LUNGS: clear to auscultatio n bilaterally ABDOMEN: normal bowel sounds, no guarding or rigidity, no hepatosplenomegaly, no masses palpable, soft, nontender, nondistended. NEUROLOGIC: alert and oriented SKIN: nonjaundiced, no spi kaz angiomata. EXTREMITIES: no edema ORAL CAVITY: mucosa moist
[2024-06-04 08:02] VITALS: BP 128/76; PULSE 68; O2SAT 98; BMI 23.8
--- NOTE | 2024-06-04 08:02 | A.OFFVIS_ITS ---
Intake Vital Signs 06/04/24 08:02 Height 5 ft 5 in Weight 143 lb BMI 23.8 BP 128/76 Blood Pressure Location Lt brachial Position Sitting Pulse 68 Pulse Source Pulse Oximeter Pulse Oximetry (%) 98 Oxygen Delivery Method Room Air Intake Visit Reasons: SAWV Allergies surgical tape Allergy (Mild, Uncoded 06/04/24 08:15) Rash Medication List - Last Reconciled 06/04/24 by Chelsea Faust PA-C cyanocobalamin (vitamin B-12) 1,000 mcg PO DAILY lidocaine 5% 1 patch topical DAILY simvastatin 40 mg PO DAILY sumatriptan succinate 25 mg PO .QD PRN 90 days HPI SAWV HPI Details 78-year-old female with past medical his tory impaired glucose tolerance, hypercholesterolemia, osteopenia, and history of breast cancer last seen January 2024 coming in for annual wellness exam.?In review of the notes, patient completed her mammogram 05/18/2024 follow up in 1 year.?Seen by orthopedics 04/26/2024 status post right carpal tunnel release 03/29/2024 doing well postoperatively. Patient states she has a healthcare proxy and a DNR form completed. She does mentioned she has pain in the middle of the back but she knows his while shoveling or raking. She is very active and walks around the block 3 times daily. She did have broken ribs several months back due to a mechanical fall and states the pain has resolved at this time. [facility] Medical History (Updated 06/04/24 @ 09:06 by Chelsea Faust PA-C) Bilateral hand numbness Duodenal ulcer Hypercholesterolemia Stress incontinence Impaired glucose tolerance Migraine History of breast cancer Pernicious anemia B12 deficiency Surgical History (Updated 06/04/24 @ 08:15 by Chelsea Faust PA-C) History of carpal tunnel release History of dental surgery History of orthopedic surgery History of knee replacement procedure of left knee S/P left knee arthroscopy History of appendectomy History of tonsillectomy History of total abdominal hysterectomy and bilateral salpingo-oophorectomy H/O right mastectomy Family History Father Prostate cancer Lung cancer Mother CVD (cardiovascular disease) Renal artery aneurysm Social History Housing: House Alcohol intake: current Alcohol intake frequency: a few times a month Comment: holiday 1 beer Patient Tobacco Use Status: Never used Tobacco e-Cigarette/Vaping Use: Never Used Second Hand Smoke Exposure: No service: No Current occupational status: retired Current occupation: rt handed Cognitive needs: No Hearing needs: No Vision needs: Yes Questionnaire Medicare Wellness Checkup [age] What gender do you identify with?: female During the past 4 weeks, how much have you been bothered by emotional problems such as feeling anxious, depressed, irritable, sad or downhearted, and blue?: not at all During the past 4 weeks, has your physical & emotional health limited your social activities with family, friends, neighbors, or groups?: not at all During the past 4 weeks, how much bodily pain have you generally had?: mild pain During the past 4 weeks, was someone available to help you if you needed & wanted help?: yes, quite a bit During the past 4 weeks, what was the hardest physical activity you could do for at least 2 minutes?: heavy Can you get to places out of walking distance without help? (For eg., can you travel alone on buses, taxis or drive your car?): Yes Can you go shopping for groceries or clothes without someone's help?: Yes Can you prepare your own meals?: Yes Can you do your housework without help?: Yes Because of any health problems, do you need the help of another person with your personal care needs such as eating, bathing, dressing or getting around the house?: No Can you handle your own money without help?: Yes During the past 4 weeks, how would you rate your health in general?: very good During the past 4 weeks how have things been going for you?: pretty well Are you having difficulties driving your car?: no Do you always fasten your seat belt when you are in a car?: yes, usually During past 4 weeks, have you been bothered by the following: never: Falling or dizzy when standing up, Sexual problems?, Trouble eating well?, Teeth or denture problems? and Problems using the telephone? and sometimes: Tiredness or fatigue? Have you fallen 2 or more times in the past year?: No Are you afraid of falling?: No Are you a smoker?: no During the past 4 weeks, how many drinks of wine, beer, or other alcoholic beverages did you have?: 1 drink or less per week Do you exercise for about 20 minutes 3 or more times a week?: yes, most of the time Have you been given information to help with the following?: no: Hazards in your house that might hurt you? How often do you have trouble taking medicines the way you have been told to take them?: I always take medicine as prescribed How confident are you that you can control & manage most of your health problems?: very confident What is your race?: White PHQ-9 Over the last 2 weeks, how often have you been bothered by any of the following problems? 1. Little interest or pleasure in doing things: not at all 2. Feeling down, depressed, or hopeless: not at all 3. Trouble falling or staying asleep, or sleeping too much: not at all 4. Feeling tired or having little energy: not at all 5. Poor appetite or overeating: not at all 6. Feeling bad about yourself - or that you are a failure or have let yourself or your family down: not at all 7. Trouble concentrating on things, such as reading the newspaper or watching television: not at all 8. Moving or speaking so slowly that other people could have noticed. Or the opposite - being so fidgety or restless that you have been moving around a lot more than usual: not at all 9. Thoughts that you would be better off or of hurting yourself in some way: not at all Total score: 0 Depression Screening Interpretation: Negative Depression Screening Done: Yes 49961 - PHQ-9 Billing: Yes Source: Developed by Drs. Ronal Wheeler, Slime Oswald, Gustavo Horner and colleagues, with an educational ernesto from [employer]. Review of Systems Const Denies body aches, Denies fatigue, Denies fever(s), Denies frequent falls, Denies headache(s) and Denies weakness Eyes Details: hx of bilateral cataract surgery Reports no additional complaints and Denies change in vision ENT Denies dysphagia, Denies dizziness, Denies facial pain, Denies headache(s), Denies nasal congestion and Denies odynophagia Card Denies chest pain, Denies syncope, Denies irregular heart rhythm, Denies leg edema, Denies lightheadedness and Denies dyspnea Resp Denies cough and Denies dyspnea GI Denies constipation, Denies dysphagia, Denies dyspepsia, Denies diarrhea, Denies nausea, Denies odynophagia and Denies vomiting Denies urinary frequency, Denies dysuria, Denies urinary hesitancy and Denies urinary urgency Musc Denies back pain and Denies myalgias Skin/Breast Reports system reviewed and no additional complaints, except as documented Neuro Denies dizziness, Denies syncope, Denies frequent falls, Denies headache(s) and Denies weakness Psych Reports no additional complaints Endo Denies fatigue Physical Exam Vital Signs: Last Vital Signs Pulse 68 06/04/24 08:02 BP 128/76 06/04/24 08:02 Pulse Ox 98 06/04/24 08:02 Oxygen Delivery Method Room Air 06/04/24 08:02 BMI result Body Mass Index 23.8 Const General: cooperative, healthy appearing, comfortable and no acute distress Orientation/consciousness: patient oriented x3 HEENT Head: Yes normocephalic Ears: hearing grossly normal bilaterally, external ears normal, TM's normal bilaterally and EAC's normal General nose exam: Normal external nose present Face and sinus: Yes normal facial exam and Yes sinuses nontender Mouth: Normal oral and palatal mucosa present and tongue normal Throat: Yes posterior oropharynx normal Eyes General: appearance normal, both eyes and all related structures Conjunctivae: conjunctivae normal Pupils: Equal, round and reactive pupils present EOM: EOMs intact bilaterally and No Nystagmus present Neck Neck: Yes normal visual inspection, Yes full ROM and Yes no lymphadenopathy Chest Chest palpation & inspection: normal inspection of the chest Resp Effort & Inspection: normal respiratory effort Auscultation: clear to auscultation bilaterally, no crackles, no rales, no rhonchi, no wheezes and breath sounds present Cardio Rate: regular rate Rhythm: regular rhythm Peripheral pulses: radial pulses present and dorsalis pedis present GI Inspection: Yes normal to inspection and No Abdominal wall edema Palpation (GI): Soft to palpation, not firm and nontender Auscultation: normal bowel sounds Rectal Exam - Female: deferred General: Yes no CVA tenderness Back/Spine/Pelvis Other: No tenderness to spine or paraspinal muscles. Negative straight leg raise test bilaterally Back: no CVA tenderness Skin General skin exam: no rashes or lesions noted Neuro General: patient oriented x3 Cranial nerves: Yes Equal, round and reactive pupils present, Yes Midline tongue present, Yes Ability to bilaterally elevate shoulders present and No Nystagmus present Gait exam (Neuro): Normal gait present Extrem General: Yes normal to inspection, Yes full ROM, No no pedal edema and No edema Psych Speech and movement: Normal speech and movement present Affect: normal affect Insight: Good insight present (Psych) Judgement: Good judgement present (Psych) Office Procedures Flu Questionnaire Does the patient have a severe egg allergy?: No Does the patient have severe life threatening allergies?: No Does the patient have a fever or illness today?: No Has the patient ever had Guillain-[place] Syndrome?: No Has the patient ever had any past reaction to a flu shot?: No Immunizations Fluarix Triv [id number] (PF) 45 mcg (15 mcg x 3)/0.5 mL IM syringe Performing Provider: Chelsea Faust PA-C [facility] Administered by: MIRIAM Rodríguez on 06/04/24 08:37 Dose Route Admin Location Dispensed Lot Number Expiration Date [facility] [employer] Member 0.5 mL IM Left Deltoid 0.5 mL [id number] 12/20/24 [id number] [employer] VIS Given Date VIS Provided VIS Publication Date 06/04/24 Single Vaccine 21 Eligibility Eligibility Date Funding Source Not [facility] Eligible 06/04/24 Private Assessment & Plan Assessment & Plan (1) Rib fracture: Code(s): S22.39XA - Fracture of one rib, unspecified side, initial encounter for closed fracture Plan: Pain has resolved at this time no pain with deep breath. Continue to monitor symptoms (2) Carpal tunnel syndrome on both sides: Comment: September 2023Moderately severe bilateral median neuropathy across carpal tunnel. s/p right carpal tunnel release with Dr. Chowdary Code(s): G56.03 - Carpal tunnel syndrome, bilateral upper limbs Plan: Patient states her numbness and tingling in the right hand has resolved completely since the carpal tunnel release. Left hand symptoms very mild. (3) Blood pressure elevated without history of HTN: Code(s): R03.0 - Elevated blood-pressure reading, without diagnosis of hypertension Plan: Blood pressure at goal today 128/76 Avoid salt intake and encourage healthy diet and regular exercise. (4) Hypercholesterolemia: Code(s): E78.00 - Pure hypercholesterolemia, unspecified Plan: Avoid foods that are high in cholesterol such as red meat, fried foods, eggs and baked goods. Triglyceride goal of less than 150 and LDL goal of less than 130. Continue on simvastatin 40 mg. Patient was reminded about blood work. (5) Impaired glucose tolerance: Code(s): R73.02 - Impaired glucose tolerance (oral) Plan: Decrease the amount of carbohydrates such as pasta, bread, rice, and potatoes and limit the amount of sweets. Although fruits are generally healthy they should be eaten in moderation as they are still high in sugar. Patient was reminded about blood work (6) History of breast cancer: Comment: Right 1990 Dr. Reardon right radical mastectomy no chemo no radiation tamoxifen 5 years Code(s): Z85.3 - Personal history of malignant neoplasm of breast Plan: Continue to follow with yearly mammograms. Last mammogram completed 2023 negative advised to follow up yearly. (7) Osteopenia: Comment: 06/2021 Code(s): M85.80 - Other specified disorders of bone density and structure, unspecified site Qualifiers: Osteopenia location: unspecified Qualified Code(s): M85.80 - Other specified disorders of bone density and structure, unspecified site Plan: Continue with light weight-bearing exercises and increasing dietary intake of calcium. (8) Annual wellness visit: Code(s): Z00.00 - Encounter for general adult medical examination without abnormal findings Plan: Patient is up-to-date on all recommended routine screenings and vaccinations for her age. She no longer has to complete colonoscopies. Encouraged healthy diet and regular exercise. [place] of care was reviewed with patient patient was provided with a written screening schedule. Healthcare proxy/ MOLST forms were reviewed with patient and has been completed previously. (9) Mid back pain: Code(s): M54.9 - Dorsalgia, unspecified Plan: Likely muscular as it is exacerbated by movement and resolves with rest and heat. Advised patient to do gentle stretching before raking or shoveling and use heat, Tylenol and ibuprofen as needed for pain. If pain worsens or persists please reach out to for further evaluation Plan This note was constructed using voice recognition software. While every effort has been made to ensure accuracy and tape folding machine operator, still areas may have been included sometimes these areas may affect the content or meeting of the given symptoms. Total time spent caring for the patient today was 30 minutes. This includes time spent before the visit reviewing the chart, time spent during the visit, and time spent after the visit and documentation. Orders: Orders Influenza [id number] Immunization Today Z23 - Encounter for immunization Quality Reporting (2019) Depression/Bipolar (159/160/161/177) PHQ-9: Total score: 0 Coding Level of Care Code Medicare Subsequent (G0439) Diagnoses Rib fracture S22.39XA Carpal tunnel syndrome on both sides G56.03 Blood pressure elevated without history of HTN R03.0 Hypercholesterolemia E78.00 Impaired glucose tolerance R73.02 History of breast cancer Z85.3 Osteopenia, unspecified location M85.80 Osteopenia location: unspecified Annual wellness visit Z00.00 Mid back pain M54.9 Additional Codes PHQ-9 - 90905 - PHQ-9 Billing: Yes ([id number])
== END 2024-06-04 08:40 | disposition home or self-care (01) ==
PROVIDERS: PCP Internal Medicine
DX: Z00.00 Encounter for general adult medical examination without abnormal findings (principal); S22.39XA Fracture of one rib, unspecified side, initial encounter for closed fracture; G56.03 Carpal tunnel syndrome, bilateral upper limbs; R03.0 Elevated blood-pressure reading, without diagnosis of hypertension; E78.00 Pure hypercholesterolemia, unspecified; R73.02 Impaired glucose tolerance (oral); Z85.3 Personal history of malignant neoplasm of breast; M85.80 Other specified disorders of bone density and structure, unspecified site; M54.9 Dorsalgia, unspecified; Z23 Encounter for immunization

== ENCOUNTER → 2024-06-04 07:42 | Outpatient (BNVA) | payer OTHER, SELFPAY | PROVIDERS: PCP Internal Medicine | DX: Z00.00 Encounter for general adult medical examination without abnormal findings (principal); Z23 Encounter for immunization; S22.39XD Fracture of one rib, unspecified side, subsequent encounter for fracture with routine healing; R03.0 Elevated blood-pressure reading, without diagnosis of hypertension; E78.00 Pure hypercholesterolemia, unspecified; R73.02 Impaired glucose tolerance (oral); M85.80 Other specified disorders of bone density and structure, unspecified site; M54.9 Dorsalgia, unspecified; Z86.69 Personal history of other diseases of the nervous system and sense organs; Z85.3 Personal history of malignant neoplasm of breast | CPT/HCPCS: 90471; 90656; 96127 ==

== ENCOUNTER 2024-12-03 08:11 | Outpatient (AMB) | payer OTHER, SELFPAY ==
--- NOTE | 2024-12-03 08:14 | MHC.PC.OV ---
Vital Signs 12/03/24 08:16 12/03/24 08:54 Height 5 ft 5 in Weight 144 lb 6 oz BMI 24.0 BP 140/70 H 138/82 Blood Pressure Location Lt brachial Lt brachial Position Sitting Sitting Pulse 97 Pulse Source Pulse Oximeter Temp 97.3 F Temp Source Temporal Artery Scan Pulse Oximetry (%) 97 Oxygen Delivery Method Room Air Intake Visit Reasons: 6 mo follow up Intake Note: Patient is here to follow up on Migraine, Hypercholesterolemia . Computed Tomography Technician Required: No Director Hr Communications: Not Required per policy Accompanied by: Self / Same As Patient Allergies surgical tape Allergy (Mild, Uncoded 12/03/24 08:42) Rash Medication List - Last Reconciled 12/03/24 by Chelsea Faust PA-C cyanocobalamin (vitamin B-12) 1,000 mcg PO DAILY lidocaine 5% 1 patch topical DAILY simvastatin 40 mg PO DAILY sumatriptan succinate 25 mg PO .QD PRN 90 days Tobacco use date assessed: 12/03/24 Fall risk assessment: No Falls in past year Last assessed Fall Risk: 12/03/24 Dental Screening Dental Screen Date: 12/03/24 Did you have a dental visit in the last 12 months?: No Did you have a dental problem in the last 6 months where you did not have access to dental care?: No Was dental information given to patient?: No (Dentures) HPI 6 mo follow up HPI Details 79-year-old female with past medical history impaired glucose tolerance, hypercholesterolemia, osteopenia, and history of breast cancer last seen 05/2024 coming in for follow up.? Hypertension: Blood pressure was noted to be slightly elevated at 138/82 mmHg during the visit, but not at a level requiring treatment. The patient does not monitor blood pressure at home and was advised to consider obtaining a home blood pressure monitor. Tingling in hands: The patient reports occasional tingling in the hands, particularly upon waking, which she associates with her sleeping position. She sometimes uses night braces but finds them uncomfortable. Back pain: The patient reports improvement in back pain, which was previously exacerbated by walking her dog. Exercise and habits: The patient walks approximately two miles daily and maintains a diet low in red meat, preferring chicken and salads. She denies smoking and alcohol use. [facility] Medical History Bilateral hand numbness Duodenal ulcer Hypercholesterolemia Stress incontinence Impaired glucose tolerance Migraine History of breast cancer Pernicious anemia B12 deficiency Surgical History History of carpal tunnel release History of dental surgery History of orthopedic surgery History of knee replacement procedure of left knee S/P left knee arthroscopy History of appendectomy History of tonsillectomy History of total abdominal hysterectomy and bilateral salpingo-oophorectomy H/O right mastectomy Family History Father Prostate cancer Lung cancer Mother CVD (cardiovascular disease) Renal artery aneurysm Social History Housing: House Alcohol intake: current Alcohol intake frequency: a few times a month Comment: holiday 1 beer Patient Tobacco Use Status: Never used Tobacco e-Cigarette/Vaping Use: Never Used Second Hand Smoke Exposure: No service: No Current occupational status: retired Current occupation: rt handed Cognitive needs: No Hearing needs: No Vision needs: Yes (Glasses) Questionnaire PHQ-9 Over the last 2 weeks, how often have you been bothered by any of the following problems? 1. Little interest or pleasure in doing things: not at all 2. Feeling down, depressed, or hopeless: not at all 3. Trouble falling or staying asleep, or sleeping too much: not at all 4. Feeling tired or having little energy: not at all 5. Poor appetite or overeating: not at all 6. Feeling bad about yourself - or that you are a failure or have let yourself or your family down: not at all 7. Trouble concentrating on things, such as reading the newspaper or watching television: not at all 8. Moving or speaking so slowly that other people could have noticed. Or the opposite - being so fidgety or restless that you have been moving around a lot more than usual: not at all 9. Thoughts that you would be better off or of hurting yourself in some way: not at all Total score: 0 Depression Screening Interpretation: Negative Depression Screening Done: Yes Source: Developed by Drs. Ronal L. SummerSlmie hurley, Gustavo Horner and colleagues, with an educational ernesto from [employer]. Thrive Questionnaire Date Thrive assessed: 12/03/24 I am a: Patient What is your living situation today?: I have a steady place to live Within the past 12 months, did the food you bought not last and you didn't have the money to get more?: I choose not to answer this question Within the past 12 months, did you worry whether your food would run out before you got money to buy more?: I choose not to answer this question Do you have trouble paying for medicines?: I choose not to answer this question Do you have trouble getting transportation to medical appointments?: I choose not to answer this question Do you have trouble paying your heating and electricity bill?: I choose not to answer this question Do you have trouble taking care of your child, family member or friend?: I choose not to answer this question Do you have trouble with day-to-day activities such as bathing, preparing meals, shopping, managing finances, etc.?: I choose not to answer this question Are you currently unemployed and looking for a job?: I choose not to answer this question Are you interested in more education?: I choose not to answer this question Please select the resources that you would like help with: None Currently or been in a relationship where the following occur: I choose not to answer THRIVE Score: 0 AUDIT C Alcohol Use Questionnaire (AUDIT-C) 1. How often do you have a drink containing alcohol?: Monthly or less 2. How many drinks containing alcohol do you have on a typical day when you are drinking?: 1 or 2 3. How often do you have six or more drinks on one occasion?: Never Total Score: 1 CLIFF-7 AMB Questionnaire CLIFF-7 Date CLIFF - 7 assessed: 12/03/24 Feeling nervous, anxious, or on edge: 0 = Not at all Not being able to stop or control worryin = Not at all Worrying too much about different things: 0 = Not at all Trouble relaxin = Not at all Being so restless that it is hard to sit still: 0 = Not at all Becoming easily annoyed or irritable: 0 = Not at all Feeling afraid as if something awful might happen: 0 = Not at all Total CLIFF-7 score (0-4 normal; 5-9 mild; 10-14 moderate; 15-21 severe): 0 Source: Developed by Drs. Ronal Wheeler, Slime Oswald, Gustavo Horner and colleagues, with an educational ernesto from [employer]. Review of Systems Const Denies body aches, Denies chills, Denies fever(s), Denies headache(s) and Denies poor appetite Eyes Reports no additional complaints ENT Denies dysphagia, Denies dizziness, Denies headache(s) and Denies odynophagia Card Denies chest pain, Denies syncope, Denies edema, Denies irregular heart rhythm, Denies lightheadedness and Denies dyspnea Resp Denies cough and Denies dyspnea GI Denies abdominal pain, Denies constipation, Denies dysphagia, Denies diarrhea, Denies nausea, Denies odynophagia and Denies vomiting Reports no additional complaints Musc Reports no additional complaints and Denies abnormal gait Skin/Breast Reports system reviewed and no additional complaints, except as documented Neuro Denies abnormal gait, Denies dizziness, Denies syncope and Denies headache(s) Psych Reports no additional complaints Physical exam (Primary Care) Vital Signs: Last Vital Signs Temp 97.3 F 12/03/24 08:16 Pulse 97 12/03/24 08:16 BP 140/70 H 12/03/24 08:16 Pulse Ox 97 12/03/24 08:16 Oxygen Delivery Method Room Air 12/03/24 08:16 BMI result Body Mass Index 24.0 Tobacco/Smoking Status: Tobacco use Status Tobacco use date assessed 12/03/24 12/03/24 08:21 Patient Tobacco Use Status Never used Tobacco 12/03/24 08:15 e-Cigarette/Vaping Use Never Used 12/03/24 08:15 PHQ-9: PHQ-9 Score PHQ-9: Total score 0 12/03/24 08:15 Depression Screening Interpretation: Negative Thrive Assessment: Date of Thrive Assessment Date Thrive assessed 12/03/24 12/03/24 08:15 Currently or been in a relationship where the following occur: I choose not to answer Const General: cooperative, healthy appearing, comfortable and no acute distress Orientation/consciousness: patient oriented x3 HENMT Head: Yes normocephalic Ears: hearing grossly normal bilaterally General nose exam: Normal external nose present Eyes General: appearance normal, both eyes and all related structures Conjunctivae: conjunctivae normal Neck Neck: Yes full ROM and Yes no lymphadenopathy Resp Effort & Inspection: normal respiratory effort Auscultation: clear to auscultation bilaterally, no crackles, no rales, no rhonchi and no wheezes Cardio Rate: regular rate Rhythm: regular rhythm Skin General skin exam: no rashes or lesions noted Neuro General: patient oriented x3 Gait exam (Neuro): Normal gait present Extrem General: Yes normal to inspection, Yes full ROM and No edema Psych Affect: normal affect Attitude: cooperative Insight: Good insight present (Psych) Judgement: Good judgement present (Psych) Coding Level of Care Code Est Pt Level 3 (31025) Diagnoses Carpal tunnel syndrome on both sides G56.03 Blood pressure elevated without history of HTN R03.0 Hypercholesterolemia E78.00 Impaired glucose tolerance R73.02 Osteopenia, unspecified location M85.80 Osteopenia location: unspecified Mid back pain M54.9 Assessment & Plan Assessment & Plan (1) Carpal tunnel syndrome on both sides: Comment: September 2023Moderately severe bilateral median neuropathy across carpal tunnel. s/p right carpal tunnel release with Dr. Chowdary Code(s): G56.03 - Carpal tunnel syndrome, bilateral upper limbs Category: Medical Plan: Patient states her numbness and tingling in the right hand has resolved completely since the carpal tunnel release. Left hand symptoms very mild. Advised to continue to use the night braces. (2) Blood pressure elevated without history of HTN: Code(s): R03.0 - Elevated blood-pressure reading, without diagnosis of hypertension Category: Medical Plan: Blood pressure at goal today 138/82. Avoid salt intake and encourage healthy diet and regular exercise. Advised patient to obtain BP cuff and check BP at home and reach out to the office if exceeds 140/90 (3) Hypercholesterolemia: Code(s): E78.00 - Pure hypercholesterolemia, unspecified Category: Medical Plan: Avoid foods that are high in cholesterol such as red meat, fried foods, eggs and baked goods. Triglyceride goal of less than 150 and LDL goal of less than 130. Continue on simvastatin 40 mg. Patient was reminded about blood work. (4) Impaired glucose tolerance: Code(s): R73.02 - Impaired glucose tolerance (oral) Category: Medical Plan: Decrease the amount of carbohydrates such as pasta, bread, rice, and potatoes and limit the amount of sweets. Although fruits are generally healthy they should be eaten in moderation as they are still high in sugar. Patient was reminded about blood work (5) Osteopenia: Comment: 06/2021 Code(s): M85.80 - Other specified disorders of bone density and structure, unspecified site Category: Medical Qualifiers: Osteopenia location: unspecified Qualified Code(s): M85.80 - Other specified disorders of bone density and structure, unspecified site Plan: Continue with light weight-bearing exercises and increasing dietary intake of calcium. (6) Mid back pain: Code(s): M54.9 - Dorsalgia, unspecified Category: Medical Plan: Denies any back pain at this time. Plan The patient was advised to monitor her blood pressure at home using an automatic cuff, taking readings one to two times a week and recording them for future reference. It was emphasized that any readings over 140/90 mmHg should be reported for further evaluation. The patient was informed that her current blood pressure reading of 138/82 mmHg does not require medication at this time, but regular monitoring is essential. Regarding the tingling in her hands, the patient was encouraged to continue using night braces as needed, despite the discomfort, to alleviate symptoms. For her back and rib pain, which have improved, no further intervention was deemed necessary at this time. The patient was encouraged to maintain her current exercise routine and dietary habits, which include walking two miles daily and consuming a diet low in red meat. This note was constructed using voice recognition software. While every effort has been made to ensure accuracy and senior cost analyst, still areas may have been included sometimes these areas may affect the content or meeting of the given symptoms. Total time spent caring for the patient today was 20 minutes. This includes time spent before the visit reviewing the chart, time spent during the visit, and time spent after the visit and documentation. Patient was informed and verbally consented to the use of an ambient scribe for clinic note documentation during this visit. Orders: Orders Hemoglobin A1c Today R73.02 - Impaired glucose tolerance (oral) Lipid Panel Today E78.00 - Pure hypercholesterolemia, unspecified Free T4 (Free Thyroxine) Today G43.909 - Migraine, unspecified, not intractable, without status migrainosus, Z00.00 - Encounter for general adult medical examination without abnormal findings Vitamin B12 and Folate Today G43.909 - Migraine, unspecified, not intractable, without status migrainosus, Z13.21 - Encounter for screening for nutritional disorder Vitamin D 25-OH Total Today G43.909 - Migraine, unspecified, not intractable, without status migrainosus, Z00.00 - Encounter for general adult medical examination without abnormal findings TSH reflex Free T4 Today G43.909 - Migraine, unspecified, not intractable, without status migrainosus, Z00.00 - Encounter for general adult medical examination without abnormal findings Comprehensive Met. Panel Today G43.909 - Migraine, unspecified, not intractable, without status migrainosus, Z00.00 - Encounter for general adult medical examination without abnormal findings Complete Blood Count Auto Diff Today G43.909 - Migraine, unspecified, not intractable, without status migrainosus, Z00.00 - Encounter for general adult medical examination without abnormal findings
--- OUTSIDE RECORDS SUMMARY | 2024-12-03 08:14 | XMS_ITS ---
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 Name Role Phone Martita Raya MD Primary Care Provider Ronal Montano [phone] Allergies Allergen (clinical drug ingredient) Drug/Non Drug Allergy documented on EMR Reaction Allergy Type Onset Date Status Surgical Tape (uncoded) Unknown Allergy Active REASON FOR VISIT Patient presents today for a colon screening Medications Medication SIG (Take, Route, Frequency, Duration) Notes Start Date End Date Status SUMAtriptan Succinate 25 MG Oral for 90 Not-Taking Simvastatin 40mg Act albino Cyanocobalamin 1000 MCG 1 tablet Orally Once a day Active Multivitamin - 1 tablet Orally Once a day for 30 day(s) Active Social History Alcohol Screen Question Answer Notes Did you [...] past year? Monthly or less (1 point) Section Notes: Nonsmoker, occ. EtOH Problems Problem Type SNOMED Code ICD Code Onset Dates Problem Status W/U Status Risk Notes Problem Colon cancer screening (579126015) Colon cancer screening (Z12.11) Active confirmed Vital Signs Blood pressure systolic 00 mm Hg 10/16/19 24 Blood pressure diastolic 00 mm Hg 024 Height 65.5 in 10/16/2023 Weight 154 lbs 10/16/2023 BMI 25.23 kg/m2 10/16/2023 Encounters Encounter Location Date Provider Diagnosis [facility] [address] [place] [id number] 10/16/2023 Ronal Nolan Colon cancer screening Z12.11 Assessments Encounter Date Diagnosis (ICD Code) Assessment Notes Treatment Notes Treatment Clinical Notes Section Notes 10/16/2023 Colon cancer screening (ICD-10 - Z12.11) Since you want to hold off on the colonoscopy be sure to obtain a Cologuard test from Dr. Raya. Let me know the results. If it is positive we would want to definitely set up a colonoscopy. Overall, Micaela Abreu appears quite well. I did recommend a followup colonoscopy for further screening purposes given her last exam being over 10 years ago, her age, and her excellent clinical appearance. We did review the rationale for this in regard to colon cancer prevention. However, at this time she wants to hold off on the colonoscopy and would rather do the at-home tests with a Cologuard test. I did advise her that my recommendation is to have her undergo a colonoscopy given her age and excellent clinical appearance, but nonetheless she would rather do the noninvasive Cologuard test. As such, I did advise her to speak with you to obtain the test. I did tell her to let me know the results of the test and if it is positive we would then definitely want to set up a colonoscopy on that basis. If the test is negative she can then just see me on a p.r.n. basis. I did advise her to call me in the future if she develops any change in bowel habits or bleeding as well. Thank you again for allowing me to participate in Micaela Abreu's care. I shall continue to keep advised of her progress as needed. Plan Of Treatment Treatment Notes Assessment Notes Colon cancer screening Since you want to hold off on the colonoscopy be sure to obtain a Cologuard test from Dr. Raya. Let me know the results. If it is positive we would want to definitely set up a colonoscopy. Next Appt Details Follow Up: prn, Reason: Progress Notes * MICAELA HUTSONDOB:[birth year] (78 yo F)Acc No.[id number]:10/16/2023 Progress Notes Patient:?MICAELA HUTSON Provider:?Ronal Nolan MD :1945???Age:78 Y???Sex:Female D ate:10/16/2023 Address:[address] [place] [address], [id number] Pcp:Martita Raya MD Subjective: * Chief Complaints: * ???Patient presents today fo r a colon screening * HPI: ???incontinence:? I saw Micaela Abreu in the office today for evaluation of colorectal cancer screening. ?I last saw Micaela Abreu in 2011, at which time she underwent an upper endoscopy and colonoscopy for the evaluation of anemia. Her colonoscopy was unremarkable, as was a colonoscopy in 2008. Her upper endoscopy revealed a small duodenal ulcer and duodenitis, but biopsies were negative for H. pylori and negative for celiac disease. She was treated with a course of omeprazole and iron with resolution of her anemia. ?She presently feels well. She enjoys a good appetite, without any significant heartburn or dysphagia. Her bowel movements are regular and without any signs of bleeding. She denies abdominal pain, jaundice, nor unintentional weight loss. She denies any known family history of colon cancer. * ROS:?General/Constitutional:?Change in appetite?denies.?Chills?denies.?Fatigue?denies.?Ophthalmologic:?Patient denies? Negative..?ENT:?Patient denies?Negative..?Respiratory:?Patient denies?No coughing/hemoptysis..?Cardiovascular:?Patient denies? No chest pain/orthopnea..?Gastrointestinal:?Comments?See HPI for details.?Genitourinary:?Patient denies? No dysuria/hematuria..?Musculoskeletal:?Patient denies? No specific arthralgias/myalgias..?Skin:?Patient denies?No rash/pruritus..?Neurologic:?Patient denies? No headaches/seizures..?Psychiatric:?Patient denies?Negative..? * Medical History:? * Surgical History:?Right mast ectomy Left knee replacement 2002 [facility] App Oral surgery Left carpal tunnel * Hospitalization/Major Diagno stic Procedure:?No Hospitalization History. * Family History:?Father: dece ased.?Mother: .? No family history of colorectal cancer. * Social History:?Tobacco Use:?Tobacco Use/Smoking?Are you a: nonsmoker.?Drugs/Alcohol:?Alcohol Screen?Did you have a drink containing alcohol in the past year??Yes,?How often did you have 6 or more drinks on one occasion in the past year??Never (0 point),?How many drinks did you have on a typical day when you were drinking in the past year??1 or 2 drinks (0 point),?How often did you have a drink containing alcohol in the past year??Monthly or less (1 point),?Points?1,?Interpretation?Negative.?Miscellaneous:?Marital status: single. 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 ???Nonsmoker, occ. EtOH. * Medications:?TakingMultivita min - Tablet 1 tablet Orally Once a daySimvastatin 40mg Cyanocobalamin 1000 MCG Tablet 1 tablet Orally Once a dayTaking Multivitamin - Tablet 1 tablet Orally Once a dayTaking Simvastatin 40mg Taking Cyanocobalamin 1000 MCG Tablet 1 tablet Orally Once a dayNot-Taking/PRNSUMAtriptan Succinate 25 MG Tablet Oral Not-Taking/PRN SUMAtriptan Succinate 25 MG Tablet Oral DiscontinuedRanitidine HCl 150 MG Capsule 1 capsule Orally Q eveningMedication List reviewed and reconciled with the patientDiscontinued Ranitidine HCl 150 MG Capsule 1 capsule Orally Q eveningMedication List reviewed and reconciled with the patient * Allergies:?Surgical Tapeyes[ Allergies Verified] Objective: * Vitals:?Wt: 154 lbs, Ht: 65. 5 in, BMI:25.23 Index, BP: 00/00 mm Hg. * Examination: ???General Examination: ?GENERAL APPEARANCE:?pleasant, well nourished, well developed, in no acute distress.?EYES:?sclera non-icteric.?ORAL CAVITY:?mucosa moist.?NECK/THYROID:?no cervical lymphadenopathy, neck supple.?SKIN:?nonjaundiced, no spider angiomata..?HEART:?S1, S2 normal.?LUNGS:?clear to auscultation bilaterally.?ABDOMEN:?normal bowel sounds, no guarding or rigidity, no hepatosplenomegaly, no masses palpable, soft, nontender, nondistended..?EXTREMITIES:?no edema.?NEUROLOGIC:?alert and oriented.? Assessment: * Assessment: 1.?Colon cancer screening - Z12.11 (Primary)? Overall, Micaela Abreu appears anu te well. I did recommend a followup colonoscopy for further screening purposes given her last exam being over 10 years ago, her age, and her excellent clinical appearance. We did review the rationale for this in regard to colon cancer prevention. However, at this time she wants to hold off on the colonoscopy and would rather do the at-home tests with a Cologuard test. I did advise her that my recommendation is to have her undergo a colonoscopy given her age and excellent clinical appearance, but nonetheless she would rather do the noninvasive Cologuard test. As such, I did advise her to speak with you to obtain the test. I did tell her to let me know the results of the test and if it is positive we would then definitely want to set up a colonoscopy on that basis. If the test is negative she can then just see me on a p.r.n. basis. I did advise her to call me in the future if she develops any change in bowel habits or bleeding as well. Thank you again for allowing me to participate in Micaela Abreu's care. I shall continue to keep advised of her progress as needed. Plan: * Treatment: * Procedure Codes:? * Preventive Medicine:? ??Counseling:?Care goal follow-up plan:?Above Normal BMI Follow-up?Giving encouragement to exercise,?BMI management provided?Yes.? ??Urinary Incontinence:?Urinary Incontinence?Assessment:?Absent,?Plan of care documented:?No, reason not specified.? * Follow Up:?prn * * Sign off status: Completed true * Provider:?Ronal Nolan MD Date:? 024 Generated for Deepikai caro/Cipriano/eTransmitting on:?12/03/2024 08:14 AM EDT History and Physical Notes * HPI (History of Present Illness) Category Sub-Category Detail Notes Category Not es incontinence I saw Micaela Abreu in the office today for evaluation of colorectal cancer screening. I last saw Micaela Abreu in 2011, at which time she underwent an upper endoscopy and colonoscopy for the evaluation of anemia. Her colonoscopy was unremarkable, as was a colonoscopy in 2008. Her upper endoscopy revealed a small duodenal ulcer and duodenitis, but biopsies were negative for H. pylori and negative for celiac disease. She was treated with a course of omeprazole and iron with resolution of her anemia. She presently feels well. She enjoys a good appetite, without any significant heartburn or dysphagia. Her bowel movements are regular and without any signs of bleeding. She denies abdominal pain, jaundice, nor unintentional weight loss. She denies any known family history of colon cancer. Examination Category Sub-Category Detail Notes Category Not es General Examination GENERAL APPEARANCE: pleasant , well [...]
[2024-12-03 08:16] VITALS: BP 140/70; PULSE 97; TEMP 36.3; O2SAT 97; BMI 24.0
[2024-12-03 08:54] VITALS: BP 138/82
== END 2024-12-03 09:07 | disposition home or self-care (01) ==
LOC: HO.HMCH 08:11
PROVIDERS: PCP Internal Medicine
DX: G56.03 Carpal tunnel syndrome, bilateral upper limbs (principal); R03.0 Elevated blood-pressure reading, without diagnosis of hypertension; E78.00 Pure hypercholesterolemia, unspecified; R73.02 Impaired glucose tolerance (oral); M85.80 Other specified disorders of bone density and structure, unspecified site; M54.9 Dorsalgia, unspecified

== ENCOUNTER → 2024-12-03 08:11 | Outpatient (BNVA) | payer OTHER, SELFPAY | PROVIDERS: PCP Internal Medicine | DX: Z13.89 Encounter for screening for other disorder (principal) ==

== ENCOUNTER 2025-04-27 07:06 | Outpatient (REF) | payer MEDICARE, OTHER, SELFPAY ==
--- OUTSIDE RECORDS SUMMARY | 2025-04-27 07:10 | XMS_ITS | Patient Health Record ---
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 Role Phone Po Martita CALVIN Primary Care Provider Ronal Montano [phone] Allergies Allergen (clinical drug ingredient) Drug/Non Drug Allergy documented on EMR Reaction Allergy Type Onset Date Status Surgical Tape (uncoded) Unknown Allergy Active Reason For Referral No Information Medications Medication SIG (Take, Route, Frequency, Duration) Notes Start Date End Date Status SUMAtriptan Succinate 25 MG Oral; Duration: 90 Not-Takin g Simvastatin 40mg Act albino Cyanocobalamin 1000 MCG 1 tablet Orally Once a day Active Multivitamin - 1 tablet Orally Once a day; Duration: 30 day(s) Active Problems Problem Type SNOMED Code ICD Code Onset Dates Problem Status W/U Status Risk Notes Problem Colon cancer screening (772036228) Colon cancer screening (Z12.11) Active confirmed Plan Of Treatment Pending Test Test Name Order Date IRON [...] Start Date Coverage End Date MED[place]ARE OF [place] [address] [place] [address] [id number] MICAELA HUTSON Self - patient is the insured [facility] [address] [place] [phone] [id number] MICAELA HUTSON Self - patient is the insured Medical (General) History Medical History History ICD Code Pernicious anemia 02/2011--receiving B12 shots Hyperlipidemia Denies [place],DM,CVA,Lung disease,renal dise ase Negative screening colonoscopy in [...]
--- OUTSIDE RECORDS SUMMARY | 2025-04-27 07:10 | XMS_ITS | Clinical Summary ---
Author Organization [facility] Address [address] [place] [address] Care Team Providers Care Manager Acute Name Role Phone Unavailable Primary Care Provider Unavailabl e Social History Tobacco Use Types Packs/Day Years Used Date Smoking Tobacco: Never Assessed Comments Unknown Sex and Gender Information Value Date Recorded Sex Assigned at Not on file Legal Sex Female 3:42 PM EDT Gender Identity Not on file Sexual Orientation Not on file Plan of Treatment Health Maintenance Due Date Last Done Comments DTaP,Tdap,and Td Vaccines (1 - Tdap) 09/28/1966 Pneumococcal Vaccine: 50+ Ye ars (1 of 1 - PCV) 09/28/1997 Zoster Vaccines (1 of 2) 09/28/1997 RSV Immunization Adult Patie nts (1 - 1-dose 75+ series) 09/28/2022 Falls Risk Assessment 04/01/2024 Hepatitis C Screening 04/01/2024 Osteoporosis Screening (Bone Density Screening) 04/01/2024 Social Influencers of Health Screening 04/01/2024 Depression Screening 06/23/2024 COVID-19 Vaccine ( - 2023-2 5 season) 2025 Influenza Vaccine (#1) 2025 HIB Vaccines Aged Out No longer eligi ble based on patient's age to complete this topic HPV Vaccines Aged Out No longer eligi ble based on patient's age to complete this topic Hepatitis A Vaccines Aged Out No long er eligible based on patient's age to complete this topic Hepatitis B Vaccines Aged Out No long er eligible based on patient's age to complete this topic IPV Vaccines Aged Out No longer eligi ble based on patient's age to complete this topic MMR Vaccines Aged Out No longer eligi ble based on patient's age to complete this topic Meningococcal ACWY Vaccine Aged Out N o longer eligible based on patient's age to complete this topic Meningococcal B Vaccine Aged Out No l onger eligible based on patient's age to complete this topic RSV Immunization Patients Un kaz 20 months Aged Out No longer eligible b ased on patient's age to complete this topic Varicella Vaccines Aged Out No longer eligible based on patient's age to complete this topic
[2025-04-27 07:18] LABS: MANUAL DIFF FLAG NO
[2025-04-27 07:44] LABS: Hematocrit 37.2 % (37.0-47.0); Hemoglobin 11.9 g/dl (12.0-16.0); Imm Gran Abs Auto 0.02 X10*3/uL (0.00-0.03); Imm Gran Pct Auto 0.4 % (0.0-0.4); Lymphocytes Absolute Auto 1.2 X10*3/uL (1.2-4.9); Mean Corpuscular HGB Conc 32.0 g/dl (31.0-35.0); Mean Corpuscular Hemoglobin 30.0 pg (27.0-33.0); Mean Corpuscular Volume 93.7 fL (80.0-98.0); NRBC Abs Auto 0.000 X10*3/uL (0.0-0.012); NRBC Pct Auto 0.0 /100WBC (0.0-0.2); Platelet Count 330 X10*3/uL (160-400); Red Blood Count 3.97 X10*6/uL (4.20-5.50); White Blood Count 5.4 X10*3/uL (4.8-10.8)
[2025-04-27 07:50] LABS: Hemoglobin A1C 121.8477 umol/L
[2025-04-27 08:20] LABS: Alanine Aminotransferase 19 U/L (0-31); Albumin Level 4.7 g/dL (3.5-5.0); Alkaline Phosphatase 77 U/L (39-117); Anion Gap 12 (12-20); Aspartate Amino Transferase 33 U/L (5-31); Blood Urea Nitrogen 19 mg/dL (9-16); Calcium 9.3 mg/dL (8.4-10.2); Carbon Dioxide 23 mmol/L (22-29); Chloride 110 mmol/L (96-108); Cholesterol 196 mg/dL (<200); Estimated Glomerular Filt Rate 55; HDL Cholesterol 63 mg/dL (>40); Potassium 4.0 mmol/L (3.3-5.1); Sodium 141 mmol/L (135-145); Total Protein 7.3 g/dL (6.5-8.0); Triglycerides 113 mg/dL (<150)
[2025-04-27 08:36] LABS: Free T4 (Free Thyroxine) 0.94 ng/dL (0.71-1.85)
[2025-04-27 08:58] LABS: Folate > 20.0 ng/mL (> or = 4.0); Vitamin B12 1945 pg/mL (200-900)
== END 2025-04-27 07:07 | disposition home or self-care (01) ==
LOC: HO.LAB 07:06
PROVIDERS: PCP Internal Medicine
DX: Z00.00 Encounter for general adult medical examination without abnormal findings (principal); Z13.21 Encounter for screening for nutritional disorder; R73.02 Impaired glucose tolerance (oral); E78.00 Pure hypercholesterolemia, unspecified; G43.909 Migraine, unspecified, not intractable, without status migrainosus
CPT/HCPCS: 36415; 80053; 80061; 82306; 82607; 82746; 83036; 84439; 84443; 85025

== ENCOUNTER 2025-05-23 08:26 | Outpatient (REF) | payer MEDICARE, OTHER, SELFPAY ==
--- NOTE | ~2025-05-23 | MM_ITS ---
EXAMINATION: MM SCREENING DIGITAL BREAST TOMOSYNTHESIS, LEFT CLINICAL INFORMATION: Screening. Asymptomatic. COMPARISON: Mammography: This study is compared with prior exams dating back to TECHNIQUE: Digital breast tomosynthesis is performed in both the craniocaudal and mediolateral oblique views along with computer-aided detection (CAD). Synthesized 2D images are generated from the tomosynthesis. FINDINGS: The breasts are heterogeneously dense, which may obscure small masses. There are no significant masses, abnormal calcifications, or other abnormalities. MM/MM tomosynthesis screening LT IMPRESSION: No mammographic evidence of malignancy. ASSESSMENT: BI-RADS Category 1: Negative RECOMMENDATION: Routine annual mammography screening. 1 year F/U This examination should not preclude the clinical evaluation of a suspicious palpable abnormality. This patient's information was entered into a reminder system with a target due date for their next mammogram. Electronically signed by: Kim Pope DO 05/23/2025 02:21 PM ARMANDO
--- OUTSIDE RECORDS SUMMARY | 2025-05-23 08:43 | XMS_ITS | Clinical Summary ---
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
--- OUTSIDE RECORDS SUMMARY | 2025-05-23 08:43 | XMS_ITS | Patient Health Record ---
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 Role Phone Martita Raya MD Primary Care Provider Ronal Montano [phone] Allergies Allergen (clinical drug ingredient) Drug/Non Drug Allergy documented on EMR Reaction Allergy Type Onset Date Status Surgical Tape (uncoded) Unknown Allergy Active Reason For Referral No Information Medications Medication SIG (Take, Route, Frequency, Duration) Notes Start Date End Date Status SUMAtriptan Succinate 25 MG Tablet Oral; Duration: 90 Not-Takin g/PRN Simvastatin 40mg Act albino Cyanocobalamin 1000 MCG Tablet 1 tablet Orally Once a day Active Multivitamin - Tablet 1 tablet Orally On ce a day; Duration: 30 day(s) Active Social History Social History Additional Details Category Social Info Options Details Miscellaneous: Marital status: single 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 EtOH Nonsmoker, occ. EtOH Nonsmoker, occ. EtOH Nonsmoker, occ. EtOH Problems Problem Type SNOMED Code ICD Code Onset Dates Problem Status W/U Status Risk Notes Problem Colon cancer screening (349336553) Colon cancer screening (Z12.11) Active confirmed Plan Of Treatment Pending Test Test Name Order Date IRON + IBC (FE) 01/10/2012 FERRITIN 01/10/2012 CBC w DIFF 01/10/2012 CBC w DIFF 08/23/2011 CELIAC PANEL #10 08/23/2011 ENDOMYSIAL IGA 08/23/2011 TRANSGLUTAMINASE AB IGA 08/23/2011 TRANSGLUTAMINASE AB IGG 08/23/2011 Future Test Test Name Order Date UPPER GI ENDOSCOPY 08/23/2011 COLONOSCOPY 08/23/2011 Insurance Providers Payer Name Payer Address Payer Phone Subscriber Number Group Number Insured Name Patient Relationship to Insured Coverage Start Date Coverage End Date [place]ARE OF [place] [address] [place] [address] [id number] MICAELA HUTSON Self - patient is the insured [employer] [address] [place] [phone] [id number] MICAELA HUTSON Self - patient is the [...]
== END 2025-05-23 08:27 | disposition home or self-care (01) ==
LOC: HO.MAMMO 08:26
PROVIDERS: PCP Internal Medicine; Visit Provider Internal Medicine
DX: Z12.31 Encounter for screening mammogram for malignant neoplasm of breast (principal)
CPT/HCPCS: 77063; 77067

== ENCOUNTER → 2025-05-23 09:00 | Outpatient (BNV) | payer MEDICARE, OTHER, SELFPAY | PROVIDERS: PCP Internal Medicine; Visit Provider Internal Medicine | DX: Z12.31 Encounter for screening mammogram for malignant neoplasm of breast (principal) | CPT/HCPCS: 77063; 77067 ==

== ENCOUNTER 2025-06-17 08:43 | Outpatient (AMB) | payer MEDICARE, OTHER, SELFPAY ==
[2025-06-17 08:44] VITALS: BP 130/72; PULSE 86; TEMP 36.1; O2SAT 95; BMI 24.1
--- NOTE | 2025-06-17 08:44 | AM.OFFVISMDC ---
Intake Vital Signs 06/17/25 08:44 Height 5 ft 5 in Weight 145 lb 2 oz BMI 24.1 BP 130/72 Blood Pressure Location Lt brachial Position Sitting Pulse 86 Pulse Source Pulse Oximeter Temp 97.0 F Temp Source Temporal Artery Scan Pulse Oximetry (%) 95 Oxygen Delivery Method Room Air Intake Visit Reasons: JESUS G0439 Allergies surgical tape Allergy (Mild, Uncoded 06/17/25 08:48) Rash Medication List - Last Reconciled 06/17/25 by Martita Raya MD cyanocobalamin (vitamin B-12) 1,000 mcg PO DAILY lidocaine 5% 1 patch topical DAILY simvastatin 40 mg PO DAILY sumatriptan succinate 25 mg PO .QD PRN 90 days HPI SWV G0439 HPI Details [place] [facility] hand surgeon Benjamín Nath, [facility], HPI Comments History of Present Illness Details History of Present Illness The patient is a 79-year-old female who presents for an annual wellness visit. She reports new onset numbness in both legs for the past month, which she describes as starting from the heel and going up the back of the legs. Her past medical history is significant for breast cancer in 1990, hypercholesterolemia, osteopenia confirmed by a bone density scan in September 2023, and migraines. She also has a history of carpal tunnel surgery. The patient had a fall a year ago resulting in a broken wrist. Her current medications include vitamin B12, simvastatin 40 mg for cholesterol, and sumatriptan taken as needed for migraines approximately once a month. She denies any medication allergies. Review of labs from April revealed mild anemia with a hemoglobin of 11.9, a mildly elevated fasting blood sugar of 117 with a hemoglobin A1c of 5.7%, and an LDL of 111. Electrolytes, renal function, liver enzymes (AST 33), folic acid, vitamin D, and thyroid function were all within normal limits. For health maintenance, her mammogram is up to date. She is due for a colonoscopy and saw a counselor manager last year, but a procedure was not scheduled. Health Maintenance - Breast Cancer Screening: Mammogram is up to date. - Colon Cancer Screening: Patient is due for screening. - She has opted to do a Cologuard test, which will be sent to her home. - Osteoporosis Screening: Last bone density scan in September 2023 revealed osteopenia. - Vision Screening: Last eye exam was approximately two years ago. - Hearing Screening: Reports subjective hearing loss but has not had a formal test. - Immunizations: Tetanus and pneumonia vaccinations are up to date. - She agreed to receive an influenza vaccine during the visit. - The shingles vaccine was discussed as a two-part shot available at pharmacies. - Lab Monitoring: Labs will be followed for mild anemia and prediabetes. Social History - Alcohol Use: Reports drinking alcohol on holidays only, such as having one beer. - Tobacco Use: Denies ever using cigarettes. - Functional Status: Lives independently and is active. - She walks her dog three times around the block every morning, performs her own housework, and shovels her 100-foot driveway. - Denies falls in the last six months and does not feel unsteady. - Diet: Reports eating healthy and stays well-hydrated. Results - Lab results from April 2025: - Hemoglobin: 11.9 g/dL. - Fasting blood sugar: 117 mg/dL. - Hemoglobin A1c: 5.7%. - LDL cholesterol: 111 mg/dL. - AST: 33 U/L. - Electrolytes, renal function, folic acid, vitamin D, and thyroid studies were all within normal limits. - Bone density scan from September 2023 revealed osteopenia. [facility] Medical History Bilateral hand numbness Duodenal ulcer Hypercholesterolemia Stress incontinence Impaired glucose tolerance Migraine History of breast cancer Pernicious anemia B12 deficiency Surgical History History of carpal tunnel release History of dental surgery History of orthopedic surgery History of knee replacement procedure of left knee S/P left knee arthroscopy History of appendectomy History of tonsillectomy History of total abdominal hysterectomy and bilateral salpingo-oophorectomy H/O right mastectomy Family History Father Prostate cancer Lung cancer Mother CVD (cardiovascular disease) Renal artery aneurysm Social History Housing: House Alcohol intake: current Alcohol intake frequency: a few times a month Comment: holiday 1 beer Patient Tobacco Use Status: Never used Tobacco e-Cigarette/Vaping Use: Never Used Second Hand Smoke Exposure: No service: No Current occupational status: retired Current occupation: rt handed Cognitive needs: No Hearing needs: No Vision needs: Yes (Glasses) Questionnaire Medicare Wellness Checkup [age] What gender do you identify with?: female During the past 4 weeks, how much have you been bothered by emotional problems such as feeling anxious, depressed, irritable, sad or downhearted, and blue?: not at all During the past 4 weeks, has your physical & emotional health limited your social activities with family, friends, neighbors, or groups?: not at all During the past 4 weeks, how much bodily pain have you generally had?: no pain During the past 4 weeks, was someone available to help you if you needed & wanted help?: yes, as much as I wanted During the past 4 weeks, what was the hardest physical activity you could do for at least 2 minutes?: heavy Can you get to places out of walking distance without help? (For eg., can you travel alone on buses, taxis or drive your car?): Yes Can you go shopping for groceries or clothes without someone's help?: Yes Can you prepare your own meals?: Yes Can you do your housework without help?: Yes Because of any health problems, do you need the help of another person with your personal care needs such as eating, bathing, dressing or getting around the house?: No Can you handle your own money without help?: Yes During the past 4 weeks, how would you rate your health in general?: good During the past 4 weeks how have things been going for you?: very well; could hardly better Are you having difficulties driving your car?: no Do you always fasten your seat belt when you are in a car?: yes, usually During past 4 weeks, have you been bothered by the following: never: Falling or dizzy when standing up, Sexual problems?, Trouble eating well?, Teeth or denture problems?, Problems using the telephone? and Tiredness or fatigue? Have you fallen 2 or more times in the past year?: No Are you afraid of falling?: No Are you a smoker?: no During the past 4 weeks, how many drinks of wine, beer, or other alcoholic beverages did you have?: 1 drink or less per week Do you exercise for about 20 minutes 3 or more times a week?: yes, all the time Have you been given information to help with the following?: no: Hazards in your house that might hurt you? and no: Keeping track of your medications? How often do you have trouble taking medicines the way you have been told to take them?: I always take medicine as prescribed How confident are you that you can control & manage most of your health problems?: very confident What is your race?: White PHQ-9 Over the last 2 weeks, how often have you been bothered by any of the following problems? 1. Little interest or pleasure in doing things: not at all 2. Feeling down, depressed, or hopeless: not at all 3. Trouble falling or staying asleep, or sleeping too much: not at all 4. Feeling tired or having little energy: not at all 5. Poor appetite or overeating: not at all 6. Feeling bad about yourself - or that you are a failure or have let yourself or your family down: not at all 7. Trouble concentrating on things, such as reading the newspaper or watching television: not at all 8. Moving or speaking so slowly that other people could have noticed. Or the opposite - being so fidgety or restless that you have been moving around a lot more than usual: not at all 9. Thoughts that you would be better off or of hurting yourself in some way: not at all Total score: 0 Depression Screening Interpretation: Negative Depression Screening Done: Yes 85701 - PHQ-9 Billing: Yes Source: Developed by Drs. Ronal Wheeler, Slime Oswald, Gustavo Horner and colleagues, with an educational ernesto from [employer]. Review of Systems Narrative Review of Systems - Constitutional: Reports weight loss. - Denies fever, dizziness, and syncope. - HEENT: Reports hearing loss. - Denies problems with swallowing. - Cardiovascular: Denies chest pain or waking up short of breath. - Gastrointestinal: Denies nausea, vomiting, or changes in bowel movements. - Genitourinary: Reports occasional nocturia (once per night). - Denies other urinary problems. - Neurological: Reports numbness in bilateral lower extremities for the past month. - Musculoskeletal: Denies feeling unsteady when walking. - Reports occasional pain in the upper back. Const Denies poor appetite and Denies weakness Eyes Denies no additional complaints ENT Reports Normal hearing present, Denies dizziness, Denies nasal congestion, Denies tinnitus and Denies sore throat Card Denies chest pain, Denies syncope, Denies rapid heart rate and Denies dyspnea Resp Denies cough and Denies dyspnea GI Denies change in stool character, Reports constipation, Denies diarrhea, Denies nausea and Denies vomiting Denies urinary frequency, Denies difficulty voiding and Denies dysuria Neuro Reports Normal hearing present, Denies confusion, Denies dizziness, Denies syncope and Denies weakness Psych Denies confusion Physical Exam Exam Exam: Physical Exam General: Cooperative, healthy appearing, comfortable, no acute distress and well developed Orientation: Patient oriented x3 Limitations: Numbness in legs, both sides Head: Normal to inspection Ears: Hearing is going, ear wax noted Nose: Normal external nose present Face and sinus: Normal facial exam Eyes: Appearance normal, both eyes and all related structures Neck: Normal visual inspection and Yes full ROM Respiratory: Normal respiratory effort and able to speak in complete sentences. Clear to auscultation bilaterally Cardiovascular: Regular rate and rhythm. Normal S1 and S2 GI: Normal to inspection. Soft to palpation and nontender Skin: No rashes or lesions noted Neuro: Patient oriented x3 Extremities: Numbness in legs from heel up to the back of legs, no pain noted during examination Vital Signs: Last Vital Signs Temp 97.0 F 06/17/25 08:44 Pulse 86 06/17/25 08:44 BP 130/72 06/17/25 08:44 Pulse Ox 95 06/17/25 08:44 Oxygen Delivery Method Room Air 06/17/25 08:44 BMI result Body Mass Index 24.1 Const General: No confusion Orientation/consciousness: No confusion HEENT Head: Yes normocephalic Ears: external ears normal and TM's normal bilaterally Face and sinus: Yes normal facial exam Mouth: moist mucous membranes Throat: Yes tonsils normal Eyes Conjunctivae: conjunctivae normal Pupils: Equal, round and reactive pupils present and Pupil accommodation reflex normal Direct Ophthalmoscopy: normal light reflex Neck Neck: No lymphadenopathy Thyroid: Thyroid normal Chest Chest palpation & inspection: normal inspection of the chest Resp Effort & Inspection: normal respiratory effort and no audible wheezes Auscultation: clear to auscultation bilaterally, no crackles, no wheezes and lung sounds not diminished Cardio Rate: regular rate Rhythm: regular rhythm Peripheral pulses: radial pulses present and dorsalis pedis present GI Palpation (GI): no masses Auscultation: normal bowel sounds and normoactive bowel sounds Rectal Exam - Female: deferred Skin General skin exam: no rashes or lesions noted Rashes: no rashes Neuro General: No confusion Cranial nerves: Yes Equal, round and reactive pupils present and Yes Normal hearing present Cognition (Neuro): normal cognition Gait exam (Neuro): Normal gait present Motor exam (neuro): 5/5 motor strength present throughout Deep tendon reflexes (DTR's): Right brachioradialis reflex intensity grade: 2+, Left brachioradialis reflex intensity grade: 2+, Right patellar reflex intensity grade: 2+ and Left patellar reflex intensity grade: 2+ Extrem General: No edema Office Procedures Flu Questionnaire Does the patient have a severe egg allergy?: No Does the patient have severe life threatening allergies?: No Does the patient have a fever or illness today?: No Has the patient ever had Guillain-Treichlers Syndrome?: No Has the patient ever had any past reaction to a flu shot?: No Immunizations Fluarix [id number] (PF) 45 mcg (15 mcg x 3)/0.5 mL IM syringe Performing Provider: Martita Raya MD [facility] Administered by: Alicia Joseph CMA on 06/17/25 09:40 Dose Route Admin Location Dispensed Lot Number Expiration Date NDC Grading Clerk 0.5 mL IM Left Deltoid 0.5 mL [id number] 12/20/25 [id number] [employer] VIS Given Date VIS Provided VIS Publication Date 06/17/25 Single Vaccine 24 Eligibility Eligibility Date Funding Source Not [facility] Eligible 06/17/25 Private Assessment & Plan Assessment & Plan (1) Medicare annual wellness visit, subsequent: Code(s): Z00.00 - Encounter for general adult medical examination without abnormal findings Plan: Well as planned (2) Hypercholesterolemia: Code(s): E78.00 - Pure hypercholesterolemia, unspecified Plan: Avoid fried foods, chicken skin, eggs, butter margarine, pastries and meat. Be it pork or beef they have a lot of cholesterol on simvastatin 40 mg once a day (3) Impaired glucose tolerance: Code(s): R73.02 - Impaired glucose tolerance (oral) Plan: Decrease the amount of carbohydrate intake, pasta, bread, rice and potatoes are all sugar and that is aside from all the sweet stuff, remember that fruits are good but they are Sweet also. (4) Colon cancer screening: Code(s): Z12.11 - Encounter for screening for malignant neoplasm of colon Plan: Reminded about colonoscopy (5) History of breast cancer: Comment: Right 1990 Dr. Reardon right radical mastectomy no chemo no radiation tamoxifen 5 years Code(s): Z85.3 - Personal history of malignant neoplasm of breast Plan: Continue to monitor with mammogram is up-to-date (6) Migraine: Code(s): G43.909 - Migraine, unspecified, not intractable, without status migrainosus Plan: Patient is advised to eat healthy, keep well hydrated, keep active and have adequate sleep. (7) Mild anemia: Code(s): D64.9 - Anemia, unspecified Plan: Continue to monitor (8) Numbness and tingling of both feet: Code(s): R20.0 - Anesthesia of skin; R20.2 - Paresthesia of skin Plan Plan Patient was informed and verbally consented to the use of an ambient scribe for clinic note documentation during this visit. 1. Annual Wellness Visit The patient's chronic conditions, including hypercholesterolemia, mild anemia, and prediabetes, will continue to be monitored. Her mammogram is up to date. She was reminded about the need for a colonoscopy and opted for a Cologuard test, which will be ordered and sent to her home. The patient consented to receive an influenza vaccine during the visit. The shingles vaccine was also discussed as an option available at the pharmacy. 2. Hypercholesterolemia The patient will continue her current regimen of simvastatin 40 mg once daily. Her recent LDL of 111 is considered good. 3. Prediabetes Labs showed a mildly elevated fasting glucose of 117 and an HbA1c of 5.7%. No medication will be started at this time. Continuation of a healthy diet and regular physical activity was encouraged. 4. Mild Anemia A recent hemoglobin of 11.9 was noted. The plan is to continue monitoring this finding. 5. Peripheral Neuropathy In response to her new complaint of bilateral leg numbness, it was explained that this is likely a nerve issue. If the numbness worsens or persists, a nerve conduction study will be recommended. She was advised to continue her daily walking routine. 6. Migraine The patient will continue to use sumatriptan as needed for migraines. She reports using it approximately once a month. Discussion Notes I reviewed the patient's recent lab results from April with her. I explained that her blood work showed a very mild anemia with a hemoglobin of 11.9, which we will continue to monitor. I also discussed her mildly elevated blood sugar of 117 and hemoglobin A1c of 5.7%, which are in the prediabetic range but do not require medication at this time. I noted that her cholesterol is well-controlled. We discussed her new symptom of numbness in the feet, which has been present for about a month. I explained that this is likely a nerve problem and if it becomes worse, we can perform a nerve test, similar to the one for her hands. I encouraged her to continue her daily walking activities. We reviewed her health maintenance status. I reminded her that she is due for a colonoscopy, and she opted for a Cologuard test instead. I will arrange for the test kit to be mailed to her home. We also discussed vaccinations, and she agreed to receive a flu shot today. I advised her on the availability of the shingles vaccine at pharmacies. I confirmed she has enough of her current medications. I encouraged her to continue keeping herself hydrated, eating healthy, and maintaining her level of physical activity. Patient Instructions - Continue taking your medications as prescribed, including simvastatin for cholesterol. - Maintain your active lifestyle, including daily walks and other exercise. - Continue to eat a healthy diet and drink plenty of water. - A Cologuard kit for colon cancer screening will be mailed to your house. - Please follow the instructions provided in the box and mail the sample back. - You will receive a flu shot today before you leave the office. - If the numbness in your legs gets worse, please call our office, as we may need to do a nerve test. - If your hearing loss becomes a problem, we can arrange for a hearing test. Orders: Orders NE nerve conduction velocity Today R20.0 - Anesthesia of skin, R20.2 - Paresthesia of skin NE electromyogram (EMG) Today R20.0 - Anesthesia of skin, R20.2 - Paresthesia of skin Influenza [id number] Immunization Today Z23 - Encounter for immunization Referrals Speech and Hearing Referral H91.90 - Unspecified hearing loss, unspecified ear Cologuard Test Z12.11 - Encounter for screening for malignant neoplasm of colon Quality Reporting (2019) Depression/Bipolar (159/160/161/177) PHQ-9: Total score: 0 Coding Level of Care Code Medicare Subsequent (G0439) Diagnoses Medicare annual wellness visit, subsequent Z00.00 Hypercholesterolemia E78.00 Impaired glucose tolerance R73.02 Colon cancer screening Z12.11 History of breast cancer Z85.3 Migraine G43.909 Mild anemia D64.9 Numbness and tingling of both feet R20.0; R20.2 Additional Codes PHQ-9 - 71007 - PHQ-9 Billing: Yes ([id number])
--- OUTSIDE RECORDS SUMMARY | 2025-06-17 08:46 | XMS_ITS | Patient Health Record ---
Author Organization [facility] Address [address] [place] [id number] Care Team Providers Care Hat Marker Name Role Phone Martita Raya MD Primary Care Provider Ronal Montano [phone] Allergies Allergen (clinical drug ingredient) Drug/Non Drug [...] Status Risk Notes Problem Colon cancer screening ([id number]) Colon cancer screening (Z12.11) Active confirmed Plan [...] Date MEDICARE OF [place] [address] [place] [address] [id number] MICAELA HUTSON Self - patient is the insured [employer] ALBERTO [address] [place] [phone] [id number] MICAELA HUTSON Self - patient is the insured Medical (General) History Medical History History ICD Code Pernicious anemia 02/2011--receiving B12 shots Hyperlipidemia Denies ID,DM,CVA,Lung disease,renal dise ase Negative screening colonoscopy in [...]
--- OUTSIDE RECORDS SUMMARY | 2025-06-17 08:46 | XMS_ITS | Clinical Summary ---
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
== END 2025-06-17 09:43 | disposition home or self-care (01) ==
LOC: HO.HMCH 08:44
PROVIDERS: PCP Internal Medicine; Visit Provider Internal Medicine
DX: Z00.00 Encounter for general adult medical examination without abnormal findings (principal); E78.00 Pure hypercholesterolemia, unspecified; R73.02 Impaired glucose tolerance (oral); Z12.11 Encounter for screening for malignant neoplasm of colon; Z85.3 Personal history of malignant neoplasm of breast; G43.909 Migraine, unspecified, not intractable, without status migrainosus; D64.9 Anemia, unspecified; R20.0 Anesthesia of skin; R20.2 Paresthesia of skin; Z23 Encounter for immunization

== ENCOUNTER → 2025-06-17 08:43 | Outpatient (BNVA) | payer MEDICARE, OTHER, SELFPAY | PROVIDERS: PCP Internal Medicine; Visit Provider Internal Medicine | DX: Z00.00 Encounter for general adult medical examination without abnormal findings (principal); E78.00 Pure hypercholesterolemia, unspecified; R73.02 Impaired glucose tolerance (oral); G43.909 Migraine, unspecified, not intractable, without status migrainosus; D64.9 Anemia, unspecified; G62.9 Polyneuropathy, unspecified; M85.89 Other specified disorders of bone density and structure, multiple sites; R20.0 Anesthesia of skin; R20.2 Paresthesia of skin; H91.90 Unspecified hearing loss, unspecified ear; Z12.11 Encounter for screening for malignant neoplasm of colon; Z85.3 Personal history of malignant neoplasm of breast; Z23 Encounter for immunization; Z13.31 Encounter for screening for depression | CPT/HCPCS: 90471; 90656; 96127; 99212 ==